=== PATIENT | male | born 1950 | race Caucasian/White ===

== ENCOUNTER → 2016-06-30 | Outpatient (CLI) | payer MEDICARE, OTHER ==
[~2016-06-30] MED LIST: ACIP20TA5 PO; ASPI1TAB PO; ATOR40TA PO; BUTACAP78 PO; FISH100049 PO; GABA-279 PO; GABA-283 PO; GABA600T PD; LISI10TA4 PO; METF500T PO; VENL75TA2 PO; VITA-114 PO; VITA100041 PO; [UNRECOGNIZED DRUG - CODE] PO
[2016-06-30 18:58] LABS: ALBUMIN 3.9 GM/DL (3.2-5.2); ALBUMIN/GLOBULIN RATIO 1.34 (1.00-1.93); ALKALINE PHOSPHATASE 85 U/L (45-117); ALT/SGPT 50 U/L (12-78); ANION GAP 7 MEQ/L (8-16); AST/SGOT 28 U/L (15-37); BILIRUBIN,TOTAL 0.4 MG/DL (0.2-1.0); BLOOD UREA NITROGEN 23 MG/DL (7-18); CALCIUM LEVEL 9.1 MG/DL (8.8-10.2); CARBON DIOXIDE LEVEL 27 MEQ/L (21-32); CHLORIDE LEVEL 105 MEQ/L (98-107); CHOLESTEROL LEVEL 164 MG/DL (<200); CREATININE FOR GFR 1.21 MG/DL (0.70-1.30); GLOMERULAR FILTRATION RATE > 60.0 (>49); GLUCOSE, FASTING 126 MG/DL (80-110); SODIUM LEVEL 139 MEQ/L (136-145); TOTAL PROTEIN 6.8 GM/DL (6.4-8.2); TRIGLYCERIDES LEVEL 325 MG/DL (<150)
== END ==
LOC: M WUC 08:27
PROVIDERS: ATTEND Emergency Medicine
DX: E11.9 Type 2 diabetes mellitus without complications (principal); I10 Essential (primary) hypertension; E78.2 Mixed hyperlipidemia; E55.9 Vitamin D deficiency, unspecified; N40.1 Benign prostatic hyperplasia with lower urinary tract symptoms; R97.20 Elevated prostate specific antigen [PSA]
CPT/HCPCS: 36415; 80053; 80061; 82306; 83036; 84154; G0103

== ENCOUNTER → 2016-06-30 | Outpatient (CLI) | payer MEDICARE, OTHER ==
[2016-07-03 14:18] LABS: PSA TOTAL 3.8 ng/mL (0.0-4.0)
== END ==
LOC: M WUC 08:24
PROVIDERS: ATTEND Urology
DX: R97.20 Elevated prostate specific antigen [PSA] (principal)

== ENCOUNTER → 2016-07-31 | Outpatient (CLI) | payer MEDICARE, OTHER ==
[~2016-07-31] MED LIST changes: +ALPH1CAP PO; +BETA2500 PO; +FLOM5CAP PO; -GABA600T PD; +GABA600T PO; +VESI5TAB PO
[2016-07-31 15:17] LABS: ANION GAP 9 MEQ/L (8-16); BLOOD UREA NITROGEN 27 MG/DL (7-18); CALCIUM LEVEL 9.5 MG/DL (8.8-10.2); CARBON DIOXIDE LEVEL 23 MEQ/L (21-32); CHLORIDE LEVEL 105 MEQ/L (98-107); CREATININE FOR GFR 1.17 MG/DL (0.70-1.30); GLOMERULAR FILTRATION RATE > 60.0 (>49); GLUCOSE, FASTING 124 MG/DL (80-110); POTASSIUM SERUM 4.4 MEQ/L (3.5-5.1); SODIUM LEVEL 137 MEQ/L (136-145)
--- NOTE | 2016-07-31 23:05 | ECGEPIP ---
Stationary ECG Study [facility] Test Date: 2016-07-31 Pat Name: FOZIA PARMAR Department: Room: - Gender: M Professional Services Manager: STANLEY : 1950 Requested By: THERON Luna Order Number: [id number] Reading MD: Brigido Cross Measurements Intervals [place] Rate: 85 P: 46 [place]: 172 QRS: 48 QRSD: 82 T: 70 QT: 331 QTc: 395 Interpretive Statements SINUS RHYTHM SEPTAL MYOCARDIAL INFARCTION, Likely old if present. Poor R-wave progression. Early repolarization. PRWP new compared with 08/20/2013. Electronically Signed On 07-31-2016 23:05:23 EDT by Brigido Cross
== END ==
LOC: M LAB 13:39
PROVIDERS: ATTEND Anesthesiology
DX: Z01.818 Encounter for other preprocedural examination (principal); I10 Essential (primary) hypertension; E11.9 Type 2 diabetes mellitus without complications; I49.3 Ventricular premature depolarization

== ENCOUNTER → 2016-08-08 | Outpatient (CLI) | payer MEDICARE, OTHER ==
[~2016-08-08] VITALS: Ht 170.2 cm; Wt 97.5 kg
[~2016-08-08] MED LIST changes: +NS 1,000 ML IV SCH; +ePHEDrine SULFATE 25 MG/5 ML(5MG/ML) SYRINGE As Ordered ONE
--- NOTE | 2016-08-08 10:46 | ROOR ---
Patient Name: Tate Fay Procedure Date: 08/08/2016 10:24 AM Date of : 1950 Age: 66 Room: [facility] Gender: Male Note Status: Finalized Procedure: Upper GI endoscopy + Biopsies Indications: Follow-up of Hollins's esophagus Providers: Cristofer Madera MD Referring MD: THERON RAE MD Requesting Provider: Medicines: Monitored Anesthesia Care Complications: No immediate complications. Procedure: Pre-Anesthesia Assessment: - The heart rate, respiratory rate, oxygen saturations, blood pressure, adequacy of pulmonary ventilation, and response to care were monitored throughout the procedure. The Endoscope was introduced through the mouth, and advanced to the second part of duodenum. The upper GI endoscopy was accomplished without difficulty. The patient tolerated the procedure well. Findings: The Z-line was irregular and was found 40 cm from the incisors. Multiple biopsies were obtained with cold forceps for evaluation to rule out Hollins's Esophagus randomly at the gastroesophageal junction. A medium-sized hiatal hernia was present. No other significant abnormalities were identified in a careful examination of the stomach. The exam of the duodenum was otherwise normal. Impression: - Z-line irregular, 40 cm from the incisors. - Medium-sized hiatal hernia. - Multiple biopsies were obtained at the gastroesophageal junction. - The examination was otherwise normal. Recommendation: - Patient has a contact number available for emergencies. The signs and symptoms of potential delayed complications were discussed with the patient. Return to normal activities tomorrow. Written discharge instructions were provided to the patient. - High fiber diet. - Discharge patient to home. - Follow an antireflux regimen. - Continue present medications. - Await pathology results. - Check Portal Online for Path Results.([email or web address]!) - Return to referring physician. - The findings and recommendations were discussed with the patient's family. Cristofer Madera MD Cristofer Madera MD 08/08/2016 10:46:05 AM This report has been signed electronically. Number of Addenda: 0 Note Initiated On: 08/08/2016 10:24 AM Estimated Blood Loss: Estimated blood loss: none.
[2016-08-08 11:30] VITALS: BP 114/75
== END ==
LOC: M OPP 09:40
PROVIDERS: ATTEND Internal Medicine Gastroenterology
DX: Z09 Encounter for follow-up examination after completed treatment for conditions other than malignant neoplasm (principal); K22.70 Barrett's esophagus without dysplasia; K44.9 Diaphragmatic hernia without obstruction or gangrene; K22.8 Other specified diseases of esophagus; Z87.891 Personal history of nicotine dependence; Z79.82 Long term (current) use of aspirin; Z79.899 Other long term (current) drug therapy; Z88.1 Allergy status to other antibiotic agents

== ENCOUNTER → 2017-01-04 | Outpatient (CLI) | payer MEDICARE, OTHER ==
[~2017-01-04] MED LIST changes: +ACIP1TAB PO; -ACIP20TA5 PO; -ALPH1CAP PO; +ALPH200C2 PO; -ATOR40TA PO; +ATOR40TA75 PO; -METF500T PO; +METF500T13 PO; -NS 1,000 ML IV SCH; -VESI5TAB PO; +VESI5TAB2 PO; +VITA-182 PO; -VITA100041 PO; -ePHEDrine SULFATE 25 MG/5 ML(5MG/ML) SYRINGE As Ordered ONE
[2017-01-04 13:00] LABS: ALBUMIN 3.8 GM/DL (3.2-5.2); ALBUMIN/GLOBULIN RATIO 1.31 (1.00-1.93); ALKALINE PHOSPHATASE 84 U/L (45-117); ALT/SGPT 45 U/L (12-78); ANION GAP 7 MEQ/L (8-16); AST/SGOT 26 U/L (15-37); BILIRUBIN,TOTAL 0.3 MG/DL (0.2-1.0); BLOOD UREA NITROGEN 26 MG/DL (7-18); CALCIUM LEVEL 9.1 MG/DL (8.8-10.2); CARBON DIOXIDE LEVEL 27 MEQ/L (21-32); CHLORIDE LEVEL 106 MEQ/L (98-107); CHOLESTEROL LEVEL 145 MG/DL (<200); CREATININE FOR GFR 1.15 MG/DL (0.70-1.30); GLOMERULAR FILTRATION RATE > 60.0 (>49); GLUCOSE, FASTING 110 MG/DL (80-110); SODIUM LEVEL 140 MEQ/L (136-145); TOTAL PROTEIN 6.7 GM/DL (6.4-8.2); TRIGLYCERIDES LEVEL 228 MG/DL (<150)
[2017-01-04 13:01] LABS: POTASSIUM SERUM 5.4 MEQ/L (3.5-5.1)
== END ==
LOC: M WUC 09:56
PROVIDERS: ATTEND Emergency Medicine
DX: E78.2 Mixed hyperlipidemia (principal); I10 Essential (primary) hypertension; E55.9 Vitamin D deficiency, unspecified; E11.9 Type 2 diabetes mellitus without complications; R97.20 Elevated prostate specific antigen [PSA]

== ENCOUNTER → 2017-01-04 | Outpatient (CLI) | payer MEDICARE, OTHER ==
[2017-01-09 00:06] LABS: PSA TOTAL 3.7 ng/mL (0.0-4.0)
== END ==
LOC: M WUC 10:01
PROVIDERS: ATTEND Nurse Practitioner Family
DX: R97.20 Elevated prostate specific antigen [PSA] (principal)

== ENCOUNTER → 2017-08-09 | Outpatient (CLI) | payer MEDICARE, OTHER ==
[2017-08-09 12:52] LABS: ALBUMIN 3.8 GM/DL (3.2-5.2); ALBUMIN/GLOBULIN RATIO 1.23 (1.00-1.93); ALKALINE PHOSPHATASE 95 U/L (45-117); ALT/SGPT 57 U/L (12-78); ANION GAP 6 MEQ/L (8-16); AST/SGOT 27 U/L (7-37); BILIRUBIN,TOTAL 0.3 MG/DL (0.2-1.0); BLOOD UREA NITROGEN 14 MG/DL (7-18); CALCIUM LEVEL 9.4 MG/DL (8.8-10.2); CARBON DIOXIDE LEVEL 26 MEQ/L (21-32); CHLORIDE LEVEL 108 MEQ/L (98-107); CHOLESTEROL LEVEL 126 MG/DL (<200); CREATININE FOR GFR 1.14 MG/DL (0.70-1.30); GLOMERULAR FILTRATION RATE > 60.0 (>49); GLUCOSE, FASTING 108 MG/DL (70-100); HDL CHOLESTEROL 42 MG/DL (>40); LDL CHOLESTEROL 46.8 MG/DL (<100); NON-HDL-C 84 MG/DL; SODIUM LEVEL 140 MEQ/L (136-145); TOTAL PROTEIN 6.9 GM/DL (6.4-8.2); TRIGLYCERIDES LEVEL 186 MG/DL (<150)
[2017-08-09 12:57] LABS: TOTAL 25(OH) VITAMIN D 50.5 NG/ML (30.0-100.0)
[2017-08-09 13:07] LABS: POTASSIUM SERUM 5.5 MEQ/L (3.5-5.1)
[2017-08-09 13:20] LABS: ESTIMATED AVERAGE GLUCOSE 146 MG/DL (60-110); HEMOGLOBIN A1c 6.7 %
== END ==
LOC: M WUC 08:34
DX: E11.9 Type 2 diabetes mellitus without complications (principal); I10 Essential (primary) hypertension; E78.2 Mixed hyperlipidemia; E55.9 Vitamin D deficiency, unspecified
CPT/HCPCS: 80053

== ENCOUNTER 2017-12-25 09:16 | Day surgery (SDC) | payer MEDICARE, OTHER ==
[~2017-12-25 09:16] MED LIST changes: -ACIP1TAB PO; -ALPH200C2 PO; -ASPI1TAB PO; -ATOR40TA75 PO; -BETA2500 PO; -BUTACAP78 PO; -FISH100049 PO; -FLOM5CAP PO; -GABA-279 PO; -GABA-283 PO; -GABA600T PO; -LISI10TA4 PO; -METF500T13 PO; +PROPOFOL 200 MG/20 ML VIAL As Ordered; -VENL75TA2 PO; -VESI5TAB2 PO; -VITA-114 PO; -VITA-182 PO; -[UNRECOGNIZED DRUG - CODE] PO
[2017-12-25] MEDS: NS 1,000 ML IV (10:03)
[2017-12-25] MEDS ORDERED: LIDOCAINE 2% INJ 100 MG/5 ML SDV (FOR ANES.) As Ordered (10:10)
[2017-12-25] MEDS ORDERED: fentaNYL 100 MCG/2 ML INJECTION (J3010) As Ordered (11:06)
== END 2017-12-25 11:54 | disposition home or self-care (01) ==
LOC: M OPP 09:16
DX: K22.8 Other specified diseases of esophagus (principal); K44.9 Diaphragmatic hernia without obstruction or gangrene; R12 Heartburn; K22.70 Barrett's esophagus without dysplasia; I10 Essential (primary) hypertension; E78.00 Pure hypercholesterolemia, unspecified; E11.9 Type 2 diabetes mellitus without complications; M12.9 Arthropathy, unspecified; F32.9 Major depressive disorder, single episode, unspecified; G43.909 Migraine, unspecified, not intractable, without status migrainosus; R39.15 Urgency of urination; Z79.82 Long term (current) use of aspirin; Z79.84 Long term (current) use of oral hypoglycemic drugs; Z79.899 Other long term (current) drug therapy; Z88.0 Allergy status to penicillin
CPT/HCPCS: 43239

== ENCOUNTER → 2018-02-05 | Outpatient (CLI) | payer MEDICARE, OTHER ==
[2018-02-05 13:30] LABS: ALBUMIN 3.8 GM/DL (3.2-5.2); ALBUMIN/GLOBULIN RATIO 1.31 (1.00-1.93); ALKALINE PHOSPHATASE 93 U/L (45-117); ALT/SGPT 42 U/L (12-78); ANION GAP 4 MEQ/L (8-16); AST/SGOT 24 U/L (7-37); BILIRUBIN,TOTAL 0.3 MG/DL (0.2-1.0); BLOOD UREA NITROGEN 20 MG/DL (7-18); CALCIUM LEVEL 9.6 MG/DL (8.8-10.2); CARBON DIOXIDE LEVEL 30 MEQ/L (21-32); CHLORIDE LEVEL 109 MEQ/L (98-107); CHOLESTEROL LEVEL 137 MG/DL (<200); CHOLESTEROL RISK RATIO 2.914 (<5); CREATININE FOR GFR 1.31 MG/DL (0.70-1.30); GLOMERULAR FILTRATION RATE 57.9 (>49); GLUCOSE, FASTING 104 MG/DL (70-100); HDL CHOLESTEROL 47 MG/DL (>40); LDL CHOLESTEROL 63 MG/DL (<100); NON-HDL-C 90 MG/DL; POTASSIUM SERUM 5.9 MEQ/L (3.5-5.1); SODIUM LEVEL 143 MEQ/L (136-145); TOTAL PROTEIN 6.7 GM/DL (6.4-8.2); TRIGLYCERIDES LEVEL 134 MG/DL (<150)
[2018-02-05 13:41] LABS: TOTAL 25(OH) VITAMIN D 36.2 NG/ML (30.0-100.0)
[2018-02-05 13:55] LABS: ESTIMATED AVERAGE GLUCOSE 146 MG/DL (60-110); HEMOGLOBIN A1c 6.7 %
== END ==
LOC: M WUC 08:41
DX: E11.9 Type 2 diabetes mellitus without complications (principal); I10 Essential (primary) hypertension; E78.2 Mixed hyperlipidemia; E55.9 Vitamin D deficiency, unspecified
CPT/HCPCS: 80053

== ENCOUNTER 2018-04-04 15:23 | Inpatient (IN) | payer MEDICARE, OTHER ==
[2018-04-04 15:43] LABS: BEDSIDE GLUCOSE 110 MG/DL (80-115)
[2018-04-04 17:24] LABS: BASO # 0.1 10^3/uL (0.0-0.2); BASO % 0.7 % (0.0-1.0); EOS # 0.4 10^3/uL (0.0-0.50); HEMATOCRIT 44.5 % (42.0-52.0); HEMOGLOBIN 14.9 g/dl (13.5-17.5); IMMATURE GRANULOCYTE % 0.4 % (0-3.0); LYMPH # 2.2 10^3/uL (1.5-4.5); LYMPH % 27.3 % (24.0-44.0); MEAN CORPUSCULAR HEMOGLOBIN 31.2 pg (27.0-33.0); MEAN CORPUSCULAR HGB CONC 33.5 g/dl (32.0-36.5); MEAN CORPUSCULAR VOLUME 93.3 fl (80.0-96.0); MONO # 0.9 10^3/uL (0.0-0.8); MONO % 11.2 % (0.0-5.0); NEUTROPHILS # 4.5 10^3/uL (1.8-7.7); NEUTROPHILS % 55.4 % (36.0-66.0); PLATELET COUNT, AUTOMATED 216 10^3/uL (150-450); RED BLOOD COUNT 4.77 10^6/uL (4.30-6.10); RED CELL DISTRIBUTION WIDTH 13.8 % (11.5-14.5); WHITE BLOOD COUNT 8.1 10^3/uL (4.0-10.0)
[2018-04-04 17:45] LABS: INR 0.92; PROTHROMBIN TIME 12.4 SECONDS (12.1-14.4)
[2018-04-04 17:46] LABS: PARTIAL THROMBOPLASTIN TIME 22.2 SECONDS (25.4-37.6)
[2018-04-04 18:24] LABS: ANION GAP 14 MEQ/L (8-16); BLOOD UREA NITROGEN 46 MG/DL (7-18); CALCIUM LEVEL 8.5 MG/DL (8.8-10.2); CARBON DIOXIDE LEVEL 21 MEQ/L (21-32); CHLORIDE LEVEL 109 MEQ/L (98-107); CPK CREATINE PHOSPHOKINASE 13757 U/L (39-308); CREATININE FOR GFR 2.74 MG/DL (0.70-1.30); GLOMERULAR FILTRATION RATE 24.7 (>49); GLUCOSE, FASTING 111 MG/DL (70-100); MAGNESIUM LEVEL 1.8 MG/DL (1.8-2.4); MB/CK RELATIVE INDEX 0.08 (< OR =4); SODIUM LEVEL 144 MEQ/L (136-145); TROPONIN I < 0.02 NG/ML (< 0.10)
[2018-04-04] MEDS: ADACEL/BOOSTRIX VACCINE (DIPHTH/PERTUSS/ACELL/TETANUS)0.5ML SYR (90715) IM (19:30)
[2018-04-04] MEDS: NS 1,000 ML IV ×3 (19:45→23:10)
[2018-04-04] MEDS ORDERED: GLUCAGON FOR INJ 1 MG VIAL (J1610) SC (20:15)
[2018-04-04] MEDS ORDERED: GLUCOSE 4 GM CHEW TABLET PO (20:15)
[2018-04-04] MEDS ORDERED: DEXTROSE 50% 50 ML SYRINGE IV (20:15)
[2018-04-04 22:22] LABS: BEDSIDE GLUCOSE 97 MG/DL (80-115)
[2018-04-04] MEDS: HEPARIN SOD (PORCINE) 5000 UNITS/ML VIAL SC (23:10)
[2018-04-04] MEDS: ASPIRIN 81 MG ENTERIC TAB PO (23:10)
[2018-04-04] MEDS: GABAPENTIN 400 MG CAP PO (23:11)
[2018-04-04] MEDS: VENLAFAXINE **XR** 75MG CAPSULE PO (23:11)
[2018-04-04] MEDS: ACETAMINOPHEN TAB 650MG DOSE (2X325MG) PO (23:12)
[2018-04-04 23:40] LABS: TROPONIN I < 0.02 NG/ML (< 0.10)
[2018-04-05] MEDS: HumaLOG INSULIN (NovoLOG) PER UNIT SC ×5 (00:35→20:24)
[2018-04-05 01:47] LABS: SODIUM,RANDOM URINE 114 MEQ/L
[2018-04-05 01:47] LABS: CHLORIDE,RANDOM URINE 102 MEQ/L; KETONE, URINE AUTO RFX NEGATIVE (NEGATIVE); LEUKOCYTE ESTERASE UR AUTO RFX NEGATIVE (NEGATIVE); NITRITE, URINE AUTO RFX NEGATIVE (NEGATIVE); POTASSIUM RANDOM URINE 28.6 MEQ/L; RBC, URINE AUTO RFX 0 /HPF (0-3); SPECIFIC GRAVITY UR AUTO RFX 1.017 (1.002-1.035); SQUAM EPITHELIAL CELL UR AURFX 0 /HPF (0-6); WBC, URINE AUTO RFX 1 /HPF (0-3)
[2018-04-05] MEDS: ADACEL/BOOSTRIX VACCINE (DIPHTH/PERTUSS/ACELL/TETANUS)0.5ML SYR (90715) IM (01:54)
[2018-04-05 05:48] LABS: HEMATOCRIT 39.4 % (42.0-52.0); HEMOGLOBIN 13.1 g/dl (13.5-17.5); MEAN CORPUSCULAR HGB CONC 33.2 g/dl (32.0-36.5); MEAN CORPUSCULAR VOLUME 93.1 fl (80.0-96.0); PLATELET COUNT, AUTOMATED 187 10^3/uL (150-450); RED BLOOD COUNT 4.23 10^6/uL (4.30-6.10); RED CELL DISTRIBUTION WIDTH 13.7 % (11.5-14.5); WHITE BLOOD COUNT 7.3 10^3/uL (4.0-10.0)
[2018-04-05 06:20] LABS: ANION GAP 9 MEQ/L (8-16); BLOOD UREA NITROGEN 39 MG/DL (7-18); CALCIUM LEVEL 8.9 MG/DL (8.8-10.2); CARBON DIOXIDE LEVEL 22 MEQ/L (21-32); CHLORIDE LEVEL 107 MEQ/L (98-107); CREATININE FOR GFR 1.83 MG/DL (0.70-1.30); GLOMERULAR FILTRATION RATE 39.4 (>49); GLUCOSE, FASTING 98 MG/DL (70-100); POTASSIUM SERUM 4.7 MEQ/L (3.5-5.1); SODIUM LEVEL 138 MEQ/L (136-145); TROPONIN I < 0.02 NG/ML (< 0.10)
[2018-04-05] MEDS: HEPARIN SOD (PORCINE) 5000 UNITS/ML VIAL SC ×3 (06:25→21:42)
[2018-04-05] MEDS: ACETAMINOPHEN TAB 650MG DOSE (2X325MG) PO ×2 (06:26→11:11)
[2018-04-05 08:44] LABS: FERRITIN 36 NG/ML (26-388); IRON (FE) 90 UG/DL (65-175); PERCENT SATURATION 32.7 % (19.7-50.0); TOTAL IRON BINDING CAPACITY 275 UG/DL (250-450)
[2018-04-05] MEDS: NS 1,000 ML IV (09:27)
[2018-04-05] MEDS: VITAMIN D 1,000 INTERNATIONAL UNITS TABLET PO (11:00)
[2018-04-05] MEDS: ASPIRIN 81 MG ENTERIC TAB PO ×2 (11:01→21:41)
[2018-04-05] MEDS: ATORVASTATIN 20 MG TAB PO (11:01)
[2018-04-05] MEDS: PANTOPRAZOLE 40MG TAB (PROTONIX) PO (11:01)
[2018-04-05] MEDS: VENLAFAXINE **XR** 75MG CAPSULE PO ×2 (11:01→21:42)
[2018-04-05 11:21] LABS: BEDSIDE GLUCOSE 134 MG/DL (80-115)
[2018-04-05 16:41] LABS: BEDSIDE GLUCOSE 92 MG/DL (80-115)
[2018-04-05 20:21] LABS: BEDSIDE GLUCOSE 152 MG/DL (80-115)
[2018-04-05] MEDS: GABAPENTIN 400 MG CAP PO (21:41)
[2018-04-06] MEDS: HEPARIN SOD (PORCINE) 5000 UNITS/ML VIAL SC ×3 (05:10→21:24)
[2018-04-06] MEDS: NS 1,000 ML IV ×3 (05:10→21:50)
[2018-04-06 05:35] LABS: HEMATOCRIT 41.7 % (42.0-52.0); HEMOGLOBIN 13.8 g/dl (13.5-17.5); MEAN CORPUSCULAR HEMOGLOBIN 31.2 pg (27.0-33.0); MEAN CORPUSCULAR HGB CONC 33.1 g/dl (32.0-36.5); MEAN CORPUSCULAR VOLUME 94.1 fl (80.0-96.0); PLATELET COUNT, AUTOMATED 208 10^3/uL (150-450); RED BLOOD COUNT 4.43 10^6/uL (4.30-6.10); RED CELL DISTRIBUTION WIDTH 13.4 % (11.5-14.5); WHITE BLOOD COUNT 7.6 10^3/uL (4.0-10.0)
[2018-04-06 06:09] LABS: ANION GAP 7 MEQ/L (8-16); BLOOD UREA NITROGEN 24 MG/DL (7-18); CALCIUM LEVEL 8.9 MG/DL (8.8-10.2); CARBON DIOXIDE LEVEL 23 MEQ/L (21-32); CHLORIDE LEVEL 109 MEQ/L (98-107); CPK CREATINE PHOSPHOKINASE 6524 U/L (39-308); CREATININE FOR GFR 1.28 MG/DL (0.70-1.30); GLOMERULAR FILTRATION RATE 59.5 (>49); GLUCOSE, FASTING 73 MG/DL (70-100); MAGNESIUM LEVEL 1.5 MG/DL (1.8-2.4); SODIUM LEVEL 139 MEQ/L (136-145)
[2018-04-06] MEDS: HumaLOG INSULIN (NovoLOG) PER UNIT SC ×4 (07:15→21:00)
[2018-04-06] MEDS: ASPIRIN 81 MG ENTERIC TAB PO ×2 (10:15→21:23)
[2018-04-06] MEDS: PANTOPRAZOLE 40MG TAB (PROTONIX) PO (10:15)
[2018-04-06] MEDS: ATORVASTATIN 20 MG TAB PO (10:16)
[2018-04-06] MEDS: VENLAFAXINE **XR** 75MG CAPSULE PO ×2 (10:16→21:23)
[2018-04-06] MEDS: VITAMIN D 1,000 INTERNATIONAL UNITS TABLET PO (10:17)
[2018-04-06 11:37] LABS: BEDSIDE GLUCOSE 110 MG/DL (80-115)
[2018-04-06 16:47] LABS: BEDSIDE GLUCOSE 102 MG/DL (80-115)
[2018-04-06 19:45] LABS: BEDSIDE GLUCOSE 89 MG/DL (80-115)
[2018-04-06] MEDS: MAGNESIUM OXIDE 400 MG TAB (MAG-OX) PO (21:23)
[2018-04-06] MEDS: GABAPENTIN 400 MG CAP PO (21:23)
[2018-04-07] MEDS: HEPARIN SOD (PORCINE) 5000 UNITS/ML VIAL SC (05:51)
[2018-04-07 05:57] LABS: HEMATOCRIT 40.9 % (42.0-52.0); HEMOGLOBIN 13.5 g/dl (13.5-17.5); MEAN CORPUSCULAR HEMOGLOBIN 30.9 pg (27.0-33.0); MEAN CORPUSCULAR VOLUME 93.6 fl (80.0-96.0); PLATELET COUNT, AUTOMATED 196 10^3/uL (150-450); RED BLOOD COUNT 4.37 10^6/uL (4.30-6.10); RED CELL DISTRIBUTION WIDTH 13.4 % (11.5-14.5); WHITE BLOOD COUNT 8.3 10^3/uL (4.0-10.0)
[2018-04-07 06:36] LABS: ANION GAP 7 MEQ/L (8-16); BLOOD UREA NITROGEN 21 MG/DL (7-18); CALCIUM LEVEL 8.7 MG/DL (8.8-10.2); CARBON DIOXIDE LEVEL 23 MEQ/L (21-32); CHLORIDE LEVEL 109 MEQ/L (98-107); CPK CREATINE PHOSPHOKINASE 3112 U/L (39-308); CREATININE FOR GFR 1.22 MG/DL (0.70-1.30); GLOMERULAR FILTRATION RATE > 60.0 (>49); GLUCOSE, FASTING 86 MG/DL (70-100); MAGNESIUM LEVEL 1.5 MG/DL (1.8-2.4); POTASSIUM SERUM 4.8 MEQ/L (3.5-5.1); SODIUM LEVEL 139 MEQ/L (136-145)
[2018-04-07] MEDS: HumaLOG INSULIN (NovoLOG) PER UNIT SC (07:28)
[2018-04-07] MEDS: MAGNESIUM OXIDE 400 MG TAB (MAG-OX) PO (08:55)
[2018-04-07] MEDS: ATORVASTATIN 20 MG TAB PO (08:55)
[2018-04-07] MEDS: VENLAFAXINE **XR** 75MG CAPSULE PO (08:55)
[2018-04-07] MEDS: PANTOPRAZOLE 40MG TAB (PROTONIX) PO (08:55)
[2018-04-07] MEDS: ASPIRIN 81 MG ENTERIC TAB PO (08:55)
[2018-04-07] MEDS: VITAMIN D 1,000 INTERNATIONAL UNITS TABLET PO (08:56)
[2018-04-07] MEDS: NS 1,000 ML IV (08:56)
[2018-04-07 10:43] LABS: VITAMIN B12 LEVEL 823 PG/ML (247-911)
[2018-04-07 10:43] LABS: FOLATE 12.2 NG/ML (>5.4)
== END 2018-04-07 11:44 | disposition home or self-care (01) | DRG 683 ==
LOC: M ED 15:23 → M ED INP 20:00 → M MSPAV 22:05
PROVIDERS: Internal Medicine
DX: N17.9 Acute kidney failure, unspecified (principal); M62.82 Rhabdomyolysis; I95.1 Orthostatic hypotension; E11.21 Type 2 diabetes mellitus with diabetic nephropathy; F41.9 Anxiety disorder, unspecified; K21.9 Gastro-esophageal reflux disease without esophagitis; E78.5 Hyperlipidemia, unspecified; E86.0 Dehydration; I12.9 Hypertensive chronic kidney disease with stage 1 through stage 4 chronic kidney disease, or unspecified chronic kidney disease; N18.2 Chronic kidney disease, stage 2 (mild); F32.9 Major depressive disorder, single episode, unspecified; E55.9 Vitamin D deficiency, unspecified; M19.90 Unspecified osteoarthritis, unspecified site; Z79.82 Long term (current) use of aspirin; Z79.84 Long term (current) use of oral hypoglycemic drugs; Z79.1 Long term (current) use of non-steroidal anti-inflammatories (NSAID); Z88.1 Allergy status to other antibiotic agents

== ENCOUNTER → 2018-04-15 | Outpatient (CLI) | payer MEDICARE, OTHER ==
[~2018-04-15] MED LIST changes: +ACE65ERTAB PO; +ACET650S3 PR; +ACIP1TAB PO; +ALPH200C2 PO; +ASPI1TAB PO; +ATOR40TA75 PO; +BETA2500 PO; +BUTACAP78 PO; +FISH100049 PO; +FLOM0.4C39 PO; +GABA-1171 PO; +GABA-845 PO; +GABA600T4 PO; +IBUP200C25 PO; +LISI10TA4 PO; +MAGN400C PO; +METF10004 PO; +METF500T13 PO; -PROPOFOL 200 MG/20 ML VIAL As Ordered; +VENL150C43 PO; +VENL75TA2 PO; +VESI5TAB2 PO; +VITA-114 PO; +VITA-182 PO; +[UNRECOGNIZED DRUG - CODE] PO
[2018-04-15 12:58] LABS: BLOOD UREA NITROGEN 28 MG/DL (7-18); CALCIUM LEVEL 9.5 MG/DL (8.8-10.2); CARBON DIOXIDE LEVEL 26 MEQ/L (21-32); CHLORIDE LEVEL 104 MEQ/L (98-107); CREATININE FOR GFR 1.15 MG/DL (0.70-1.30); GLOMERULAR FILTRATION RATE > 60.0 (>49); GLUCOSE, FASTING 103 MG/DL (70-100); MAGNESIUM LEVEL 1.8 MG/DL (1.8-2.4); POTASSIUM SERUM 5.2 MEQ/L (3.5-5.1); SODIUM LEVEL 138 MEQ/L (136-145)
== END ==
LOC: M WUC 09:58
PROVIDERS: ATTEND Family Medicine
DX: E86.0 Dehydration (principal)

== ENCOUNTER → 2018-06-13 | Outpatient (CLI) | payer MEDICARE, OTHER ==
[2018-06-13 13:51] LABS: ALBUMIN 3.9 GM/DL (3.2-5.2); ALT/SGPT 36 U/L (12-78); BILIRUBIN,TOTAL 0.5 MG/DL (0.2-1.0); BLOOD UREA NITROGEN 20 MG/DL (7-18); CALCIUM LEVEL 9.1 MG/DL (8.8-10.2); CARBON DIOXIDE LEVEL 27 MEQ/L (21-32); CHLORIDE LEVEL 102 MEQ/L (98-107); CHOLESTEROL LEVEL 160 MG/DL (<200); CREATININE FOR GFR 1.16 MG/DL (0.70-1.30); GLOMERULAR FILTRATION RATE > 60.0 (>49); GLUCOSE, FASTING 98 MG/DL (70-100); HDL CHOLESTEROL 50 MG/DL (>40); LDL CHOLESTEROL 75 MG/DL (<100); NON-HDL-C 110 MG/DL; POTASSIUM SERUM 5.1 MEQ/L (3.5-5.1); SODIUM LEVEL 137 MEQ/L (136-145); TOTAL PROTEIN 6.8 GM/DL (6.4-8.2); TRIGLYCERIDES LEVEL 174 MG/DL (<150)
[2018-06-13 13:57] LABS: TOTAL 25(OH) VITAMIN D 35.4 NG/ML (30.0-100.0)
== END ==
LOC: M WUC 08:27
PROVIDERS: ATTEND Physician Assistant
DX: E11.9 Type 2 diabetes mellitus without complications (principal); I10 Essential (primary) hypertension; E78.2 Mixed hyperlipidemia; E55.9 Vitamin D deficiency, unspecified

== ENCOUNTER → 2018-08-12 | Outpatient (CLI) | payer MEDICARE, OTHER ==
[~2018-08-12] MED LIST changes: -ASPI1TAB PO; +ASPI81TA26 PO
[2018-08-12 10:54] LABS: BLOOD UREA NITROGEN 29 MG/DL (7-18); CALCIUM LEVEL 9.5 MG/DL (8.8-10.2); CARBON DIOXIDE LEVEL 27 MEQ/L (21-32); CHLORIDE LEVEL 105 MEQ/L (98-107); CREATININE FOR GFR 1.13 MG/DL (0.70-1.30); GLOMERULAR FILTRATION RATE > 60.0 (>49); GLUCOSE, FASTING 99 MG/DL (70-100); POTASSIUM SERUM 5.3 MEQ/L (3.5-5.1); SODIUM LEVEL 137 MEQ/L (136-145)
[2018-08-12 13:10] LABS: HEMOGLOBIN A1c 6.6 %
== END ==
LOC: M LAB 09:20
PROVIDERS: ATTEND Physician Assistant
DX: R73.01 Impaired fasting glucose (principal)

== ENCOUNTER → 2018-08-20 | Outpatient (REF) | payer MEDICARE, OTHER ==
[2018-08-20 17:58] LABS: APPEARANCE, URINE CLEAR (CLEAR); BACTERIA, URINE AUTO NEGATIVE (NEGATIVE); BILIRUBIN, URINE AUTO NEGATIVE (NEGATIVE); BLOOD, URINE BLOOD NEGATIVE (NEGATIVE); COLOR, URINE YELLOW (YELLOW); GLUCOSE, URINE (UA) AUTO NEGATIVE (NEGATIVE); KETONE, URINE AUTO NEGATIVE (NEGATIVE); LEUKOCYTE ESTERASE, URINE AUTO NEGATIVE (NEGATIVE); MUCUS, URINE SMALL (NEGATIVE); NITRITE, URINE AUTO NEGATIVE (NEGATIVE); PROTEIN, URINE AUTO NEGATIVE (NEGATIVE); RBC, URINE AUTO 1 /HPF (0-3); SPECIFIC GRAVITY URINE AUTO 1.015 (1.002-1.035); SQUAMOUS EPITHELIAL CELL UR AU 0 /HPF (0-6); UROBILINOGEN, URINE AUTO 0.2 mg/dL (0.0-2.0); WBC, URINE AUTO 1 /HPF (0-3)
== END ==
LOC: M SMT 17:32
PROVIDERS: ATTEND Nurse Practitioner Women's Health
DX: R97.20 Elevated prostate specific antigen [PSA] (principal); N40.1 Benign prostatic hyperplasia with lower urinary tract symptoms
CPT/HCPCS: 81001; 87086; G0463

== ENCOUNTER → 2018-08-26 | Outpatient (CLI) | payer MEDICARE, OTHER ==
[2018-08-26 16:55] LABS: BLOOD UREA NITROGEN 25 MG/DL (7-18); CALCIUM LEVEL 9.7 MG/DL (8.8-10.2); CARBON DIOXIDE LEVEL 24 MEQ/L (21-32); CHLORIDE LEVEL 104 MEQ/L (98-107); CREATININE FOR GFR 1.21 MG/DL (0.70-1.30); GLOMERULAR FILTRATION RATE > 60.0 (>49); GLUCOSE, FASTING 111 MG/DL (70-100); POTASSIUM SERUM 4.9 MEQ/L (3.5-5.1); SODIUM LEVEL 135 MEQ/L (136-145)
== END ==
LOC: M WUC 11:54
PROVIDERS: ATTEND Physician Assistant
DX: E87.5 Hyperkalemia (principal)

== ENCOUNTER → 2018-09-23 | Outpatient (CLI) | payer MEDICARE, OTHER ==
[~2018-09-23] MED LIST changes: +ACET-683 PO; +CEFD1CAP8 PO; +CHOL10007 PO; +METF-839 PO; +NIAC500T6 PO; +NIAS500T23 PO
--- NOTE | 2018-09-23 11:22 | REP ---
Prostate sonography: History: Elevated PSA Sonographic findings: Trans rectal prostate sonography demonstrates unremarkable seminal vesicles. Prostate gland is heterogeneously enlarged with calcifications and cystic changes noted. Glandular dimensions are measured at 4.5 x 4.3 x 6.9 cm with a calculated glandular volume of 70.5 ml. There is a 1.2 cm hypoechoic region in the right mid gland. Transrectal sonographic guidance is provided to Dr. Wilkerson who performed trans rectal ultrasound guided needle biopsy procedure . Electronically Signed by Jose M Renteria MD 09/23/2018 11:14 A
== END ==
LOC: M SMT PRO 09:02
PROVIDERS: ATTEND Urology
DX: R97.20 Elevated prostate specific antigen [PSA] (principal)
CPT/HCPCS: 55700; 76872; 76942; G0416

== ENCOUNTER 2018-09-28 18:15 | Inpatient (IN) | payer MEDICARE, OTHER ==
[~2018-09-28] VITALS: Ht 170.2 cm; Wt 94.3 kg
[~2018-09-28 18:15] MED LIST changes: -ACET-683 PO; -CEFD1CAP8 PO; -CHOL10007 PO; -METF-839 PO; -NIAC500T6 PO; -NIAS500T23 PO
--- NOTE | 2018-09-28 19:08 | REP ---
Clinical: Systemic inflammatory response syndrome . Comparison: 04/04/2018 . Findings: The mediastinum and cardiac silhouette are stable and within normal limits for portable technique. The lung arana are clear without acute consolidation, effusion, or pneumothorax. Skeletal structures are intact. Impression: No acute cardiopulmonary process appreciated. Electronically Signed by Frank Avila MD 09/28/2018 07:00 P
[2018-09-28] MEDS ORDERED: cefTRIAXone SOD 1 GM in D5W MINI-BAG PLUS 50 ML IV ONE (19:30)
[2018-09-28 19:32] LABS: HEMATOCRIT 41.7 % (42.0-52.0); HEMOGLOBIN 14.3 g/dl (13.5-17.5); MEAN CORPUSCULAR HEMOGLOBIN 31.2 pg (27.0-33.0); MEAN CORPUSCULAR HGB CONC 34.3 g/dl (32.0-36.5); MEAN CORPUSCULAR VOLUME 90.8 fl (80.0-96.0); PLATELET COUNT, AUTOMATED 202 10^3/uL (150-450); RED BLOOD COUNT 4.59 10^6/uL (4.30-6.10); WHITE BLOOD COUNT 16.5 10^3/uL (4.0-10.0)
[2018-09-28 19:56] LABS: ALBUMIN 3.5 GM/DL (3.2-5.2); BILIRUBIN,DIRECT 0.2 MG/DL (0.0-0.2); BILIRUBIN,TOTAL 0.8 MG/DL (0.2-1.0); CALCIUM LEVEL 8.9 MG/DL (8.8-10.2); CREATININE FOR GFR 1.27 MG/DL (0.70-1.30); POTASSIUM SERUM 4.5 MEQ/L (3.5-5.1)
[2018-09-28 19:58] LABS: LYMPHOCYTES 17 % (16-52); MONOCYTES 9 % (0-8); NEUTROPHILS 74 % (35-75); PLATELET ESTIMATE NORMAL (NORMAL)
[2018-09-28 20:11] LABS: APPEARANCE, URINE CLEAR (CLEAR); BACTERIA, URINE AUTO 1+ (NEGATIVE); BILIRUBIN, URINE AUTO NEGATIVE (NEGATIVE); BLOOD, URINE BLOOD 2+ (NEGATIVE); COLOR, URINE YELLOW (YELLOW); GLUCOSE, URINE (UA) AUTO NEGATIVE (NEGATIVE); KETONE, URINE AUTO NEGATIVE (NEGATIVE); LEUKOCYTE ESTERASE, URINE AUTO 1+ (NEGATIVE); NITRITE, URINE AUTO NEGATIVE (NEGATIVE); PROTEIN, URINE AUTO NEGATIVE (NEGATIVE); RBC, URINE AUTO 10 /HPF (0-3); SPECIFIC GRAVITY URINE AUTO 1.019 (1.002-1.035); SQUAMOUS EPITHELIAL CELL UR AU 0 /HPF (0-6); UROBILINOGEN, URINE AUTO 0.2 mg/dL (0.0-2.0); WBC, URINE AUTO 25 /HPF (0-3)
[2018-09-28] MEDS ORDERED: NIAC500T6 PO (20:56)
[2018-09-28] MEDS ORDERED: MAGN400C PO (20:56)
[2018-09-28] MEDS ORDERED: [UNRECOGNIZED DRUG - CODE] PO (20:56)
[2018-09-28] MEDS ORDERED: ACET-683 PO (20:56)
[2018-09-28] MEDS ORDERED: CHOL10007 PO (20:56)
[2018-09-28] MEDS ORDERED: FLOM0.4C39 PO (20:56)
[2018-09-28] MEDS ORDERED: NIAS500T23 PO (20:57)
[2018-09-28] MEDS: HumaLOG INSULIN (NovoLOG) PER UNIT SC SCH (21:00)
[2018-09-28] MEDS ORDERED: MAALOX 30 ML SUSP *UDC PO PRN (21:15)
[2018-09-28] MEDS ORDERED: ACETAMINOPHEN TAB 650MG DOSE (2X325MG) PO PRN (21:15)
[2018-09-28] MEDS ORDERED: MOM 30ML SUSPENSION UDC PO PRN (21:15)
--- NOTE | 2018-09-28 21:25 | HPEPDOC ---
General Date of Admission Date of Service: Sep 28, 2018 Chief Complaint The patient is a 68-year-old male admitted with a reason for visit of ADMIT. Source: Patient, RN/, Old records History of Present Illness Mr. Fay is a 68 years old man who had elective prostatae biopsy on SatSeptember 23 due to elevated PSA level. He was sent to ER for admission by his Urology due to fever and increased urinary frequency. The symptoms started yesterday; he was prescribed Cipro, the first pill of which he took this morning. In the afternoon, he had a fever spike of 101.5F at home and he took Tylenol before coming to ER. The pt denies dysuria, chills, back pain, lightheadedness or other symptoms. In the ER, pt had UA showing LE+ and WBC 25, negative nitrate. WBC 16.5. Temp 1 00F. Other labs, hemodynamic and mental status are normal. Dr. Funez was contacted from ER; who recommended admission and antibiotic. Home Medications Scheduled Aspirin (Aspirin EC) 81 Mg Tab, 81 MG PO BID, (Reported) Atorvastatin Calcium (Atorvastatin Calcium) 40 Mg Tab, 40 MG PO DAILY, (Reported) Cholecalciferol (Vitamin D3) (Vitamin D3) 1,000 Unit Tablet, 3,000 UNIT PO DAILY, (Reported) Gabapentin (Gabapentin) 600 Mg Tab, 1,200 MG PO QHS, (Reported) Lisinopril (Lisinopril) 10 Mg Tab, 10 MG PO DAILY, (Reported) Magnesium Oxide (Magnesium) 400 Mg Capsule, 400 MG PO BID, (Reported) Metformin HCl (Metformin HCl) 500 Mg Tab, 500 MG PO QAM, (Reported) Niacin (Niacin) 500 Mg Tablet.er, 500 MG PO QAM, (Reported) Niacin (Niaspan) 750 Mg Tab.er.24h, 1,500 MG PO QHS, (Reported) Niacin (Niaspan) 500 Mg Tab.er.24h, 500 MG PO QAM, (Reported) Rabeprazole Sodium (Aciphex) 20 Mg Tab, 20 MG PO BID, (Reported) Tamsulosin HCl (Flomax) 0.4 Mg Capsule, 0.4 MG PO DAILY, (Reported) Venlafaxine HCl (Venlafaxine HCl ER) 150 Mg Cap, 150 MG PO BID, (Reported) Scheduled PRN Acetaminophen (Acetaminophen) 500 Mg Tablet, 1,000 MG PO Q6H PRN for PAIN, (Reported) Butalb/Acetaminophen/Caffeine (Vxcelh-Amzmodpx-Ocda 50-325-40) 1 Cap Cap, 1 CAP PO Q8H PRN for MIGRAINE, (Reported) LAST TAKEN ABOUT A WEEK AGO Allergies Coded Allergies: erythromycin base (Verified Allergy, Unknown, 09/28/18) Past Medical History Medical History TYPE 2 DM HTN MIXED HYPERLIPIDEMIA VITAMIN D DEFICIENCY BLAS'S ESOPHAGUS MAJOR DEPRESSIVE DISORDER ENLARGED PROSTATE Surgical History [place] teeth removal; prostate biopsy 09/23 Family History Significant Family History: Diabetes, Heart disease, Hypertension Social History * Smoker: former Smoker Alcohol: Denies Drugs: denies A-FIB/CHADSVASC A-FIB History Current/History of A-Fib/PAF?: No Review of Systems Constitutional: Reports: Fever; Denies: Chills Eyes: Denies: Pain ENT: Denies: Head Aches Skin: Denies: Rash, Lesions Pulmonary: Denies: Dyspnea, Cough Cardiovascular: Denies: Chest Pain, Palpitations, Edema, Lt Headedness Gastrointestinal: Denies: Nausea, Vomiting, Abdominal Pain, Diarrhea Genitourinary: Reports: Frequency; Denies: Dysuria Musculoskeletal: Denies: Neck Pain, Back Pain Neurological: Denies: Weakness, Numbness, Change in speech, Confusion Psych: Reports: Mood Normal; Denies: Anxiety Physical Examination General Exam: Positive: Alert, Cooperative, No Acute Distress Eye Exam: Positive: PERRLA ENT Exam: Positive: Atraumatic Neck Exam: Positive: Supple; Negative: JVD Chest Exam: Positive: Clear to auscultation, Normal air movement Heart Exam: Positive: Rate Normal, Regular Rhythm Abdomen Exam: Positive: Normal bowel sounds, Soft, Other (no CVA tenderness); Negative: Tenderness Extremity Exam: Positive: Normal pulses; Negative: Edema Skin Exam: Positive: Nl turgor and temperature; Negative: Rash, Breakdown Neuro Exam: Positive: Normal Gait, Normal Speech Psych Exam: Positive: Mental status NL, Mood NL, Oriented x 3 Vital Signs Vital Signs Date Time Temp Pulse Resp B/P (MAP) Pulse Ox O2 Delivery O2 Flow Rate FiO2 09/28/18 19:30 Room Air 09/28/18 19:30 100.0 105 18 155/73 95 Laboratory Data Labs 24H Laboratory Tests 2 09/28/18 19:18: White Blood Count 16.5H, Red Blood Count 4.59, Hemoglobin 14.3, Hematocrit 41.7L, Mean Corpuscular Volume 90.8, Mean Corpuscular Hemoglobin 31.2, Mean Corpuscular Hemoglobin Concent 34.3, Red Cell Distribution Width 13.3, Platelet Count 202, Monocytes # (Auto) , Nucleated Red Blood Cells % (auto) 0.0, Neutrophils 74, Lymphocytes (Manual) 17, Monocytes (Manual) 9H, Platelet Estimate NORMAL, Red Blood Cell Morphology NORMAL, Anion Gap 11, Glomerular Filtration Rate 60.0, Calcium Level 8.9, Aspartate Amino Transf (AST/SGOT) 35, Alanine Aminotransferase (ALT/SGPT) 39, Alkaline Phosphatase 95, Total Bilirubin 0.8, Direct Bilirubin 0.2, Total Protein 7.0, Albumin 3.5, Albumin/Globulin Ratio 1.00 09/28/18 19:19: Lactic Acid Level 1.4 09/28/18 19:44: Urine Appearance CLEAR, Urine Color YELLOW, Urine pH 5.0, Urine Specific [place] 1.019, Urine Protein NEGATIVE, Urine Glucose (UA) NEGATIVE, Urine Ketones NEGATIVE, Urine Urobilinogen 0.2, Urine Bilirubin NEGATIVE, Urine Leukocyte Esterase 1+H, Urine Blood 2+H, Urine Nitrite NEGATIVE, Urine WBC (Auto) 25H, Urine RBC (Auto) 10H, Urine Hyaline Casts (Auto) 0, Urine Bacteria (Auto) 1+H, Urine Squamous Epithelial Cells 0, Urine Sperm (Auto) CBC/BMP Laboratory Tests 09/28/18 19:18 Red Blood Count 4.59, Mean Corpuscular Volume 90.8, Mean Corpuscular Hemoglobin 31.2, Mean Corpuscular Hemoglobin Concent 34.3, Red Cell Distribution Width 13.3, Monocytes # (Auto) Microbiology Microbiology 09/28/18 Blood Culture, Received Pending 09/28/18 Blood Culture, Received Pending 09/28/18 Urine Culture, Received Pending Assessment/Plan UTI in a patient with Recent Prostate Biopsy five days ago - Admit to inpatient; Uro consult placed - IV Rocephin; IV fluid - f/u Blood and Urine c/s - Monitor signs of sepsis which is not present at this time. Continue home meds for other chronic illness Plan / VTE VTE Prophylaxis Ordered?: Yes Plan Anticipated Discharge: Home BRITNI FLOWERS MD Sep 28, 2018 21:25
[2018-09-28] MEDS ORDERED: GLUCOSE 4 GM CHEW TABLET PO PRN (21:30)
[2018-09-28] MEDS ORDERED: DEXTROSE 50% 50 ML SYRINGE IV PRN (21:30)
[2018-09-28] MEDS ORDERED: GLUCAGON FOR INJ 1 MG VIAL (J1610) SC PRN (21:30)
[2018-09-28] MEDS ORDERED: METF-839 PO (22:08)
[2018-09-28 22:50] VITALS: BP 128/74
[2018-09-28] MEDS: GABAPENTIN 400 MG CAP PO SCH (23:37)
[2018-09-28] MEDS: VENLAFAXINE **XR** 75MG CAPSULE PO SCH (23:37)
[2018-09-28] MEDS: MAGNESIUM OXIDE 400 MG TAB (MAG-OX) PO SCH (23:37)
[2018-09-28] MEDS: HEPARIN SOD (PORCINE) 5000 UNITS/ML VIAL SC SCH (23:38)
[2018-09-28] MEDS: NS 1,000 ML IV SCH (23:38)
[2018-09-29] MEDS: NIACIN SR (NIASPAN) 500 MG TAB PO SCH ×3 (01:34→21:37)
[2018-09-29 06:00] VITALS: BP 124/77
[2018-09-29] MEDS: HumaLOG INSULIN (NovoLOG) PER UNIT SC SCH ×4 (07:30→21:00)
[2018-09-29 08:04] LABS: HEMATOCRIT 38.8 % (42.0-52.0); MEAN CORPUSCULAR HEMOGLOBIN 30.4 pg (27.0-33.0); MEAN CORPUSCULAR HGB CONC 33.5 g/dl (32.0-36.5); MEAN CORPUSCULAR VOLUME 90.7 fl (80.0-96.0); PLATELET COUNT, AUTOMATED 198 10^3/uL (150-450); RED BLOOD COUNT 4.28 10^6/uL (4.30-6.10); WHITE BLOOD COUNT 17.4 10^3/uL (4.0-10.0)
[2018-09-29 08:24] LABS: ALBUMIN 3.2 GM/DL (3.2-5.2); BILIRUBIN,TOTAL 0.7 MG/DL (0.2-1.0); CALCIUM LEVEL 9.1 MG/DL (8.8-10.2); CREATININE FOR GFR 1.29 MG/DL (0.70-1.30); POTASSIUM SERUM 5.4 MEQ/L (3.5-5.1); TOTAL PROTEIN 6.8 GM/DL (6.4-8.2)
[2018-09-29] MEDS: NS 1,000 ML IV SCH (08:55)
[2018-09-29] MEDS: LISINOPRIL 10 MG TAB PO SCH (08:56)
[2018-09-29] MEDS: ATORVASTATIN 20 MG TAB PO SCH (08:56)
[2018-09-29] MEDS: ASPIRIN 81 MG ENTERIC TAB PO SCH ×2 (08:56→21:37)
[2018-09-29] MEDS: VENLAFAXINE **XR** 75MG CAPSULE PO SCH ×2 (08:56→21:37)
[2018-09-29] MEDS: MAGNESIUM OXIDE 400 MG TAB (MAG-OX) PO SCH ×2 (08:56→21:36)
[2018-09-29] MEDS: TAMSULOSIN 0.4 MG CAP PO SCH (08:56)
[2018-09-29] MEDS: HEPARIN SOD (PORCINE) 5000 UNITS/ML VIAL SC SCH ×2 (08:57→21:37)
[2018-09-29] MEDS: PANTOPRAZOLE 40MG TAB (PROTONIX) PO SCH (08:57)
[2018-09-29] MEDS: cefTRIAXone SOD 1 GM in D5W MINI-BAG PLUS 50 ML IV SCH ×2 (09:08→21:37)
--- NOTE | 2018-09-29 12:19 | IPNPDOC ---
Subjective Date Seen The patient was seen on 09/29/18. Subjective Chief Complaint/HPI Patient is comfortable off was no new complaints hoping to go home tomorrow, afebrile General: Denies: ROS Unobtainable, Chills, Night Sweats, Fatigue, Malaise, Normal Appetite, Other Symptoms Constitutional: Denies: Chills, Fever, Malaise, Night Sweats, Weakness, Fatigue, Weight Loss, Lethargy, Other Eyes: Denies: Pain, Vision change, Conjunctivae inflammation, Eyelid inflamma tion, Redness, Other ENT: Denies: Head Aches, Ear Pain, Dysphagia, Sinus Congestion, Post Nasal Drip, Sore Throat, Epistaxis, Other Symptoms Skin: Denies: Rash, Lesions, Jaundice, Bruising, Itching, Dry, Breakdown, Nail Changes, Other Pulmonary: Denies: Dyspnea, Cough, Pleuritic Chest Pain, Other Symptoms Cardiovascular: Denies: Chest Pain, Palpitations, Orthopnea, Paroxysmal Noc. Dyspnea, Edema, Lt Headedness, Other Symptoms Gastrointestinal: Denies: Nausea, Vomiting, Abdominal Pain, Diarrhea, Constipation, Melena, Hematochezia, Other Symptoms Genitourinary: Denies: Dysuria, Frequency, Incontinence, Hematuria, Retention, Other Symptoms Musculoskeletal: Denies: Neck Pain, Back Pain, Shoulder Pain, Arm Pain, Hand Pain, Leg Pain, Foot Pain, Joint Pain, Muscle Pain, Spasms, Other Symptoms Neurological: Denies: Weakness, Numbness, Incoordination, Change in speech, Confusion, Seizures, Other Symptoms Psych: Denies: Mood Normal, Anxiety, Depression, Memory Issues, Thoughts of Self Harm, Anger, Thoughts of Harming Other, Other Psych Objective Physical Examination General Exam: Positive: Alert, Cooperative, No Acute Distress Eye Exam: Positive: PERRLA ENT Exam: Positive: Atraumatic Neck Exam: Positive: Supple; Negative: JVD Chest Exam: Positive: Clear to auscultation, Normal air movement Heart Exam: Positive: Rate Normal, Regular Rhythm Abdomen Exam: Positive: Normal bowel sounds, Soft, Other (no CVA tenderness); Negative: Tenderness Extremity Exam: Positive: Normal pulses; Negative: Edema Skin Exam: Positive: Nl turgor and temperature; Negative: Rash, Breakdown Neuro Exam: Positive: Normal Gait, Normal Speech Psych Exam: Positive: Mental status NL, Mood NL, Oriented x 3 Assessment /Plan Problems (1) UTI (urinary tract infection) Problem Text: Admitted to medical floor Patient is asymptomatic at the present time and also is afebrile A new IV Rocephin Leaflets will be DC'd as patient is at a good oral intake of liquids Urology consult is still pending Once the cleared by urology can be discharged home Urine cultures can be followed up by his PCP as an outpatient Plan/VTE VTE Prophylaxis Ordered?: Yes Plan Anticipated Discharge: Home VS, I&O, 24H, Fishbone Vital Signs/I&O Vital Signs Date Time Temp Pulse Resp B/P (MAP) Pulse Ox O2 Delivery O2 Flow Rate FiO2 09/29/18 08:56 124/77 09/29/18 06:14 100.2 09/29/18 06:00 107 18 93 09/28/18 22:00 Room Air I&O- Last 24 Hours up to 6 AM 09/29/18 06:00 Intake Total 850 ml Output Total 500 ml Balance 350 ml Laboratory Data 24H LABS Laboratory Tests 2 09/28/18 19:18: White Blood Count 16.5H, Red Blood Count 4.59, Hemoglobin 14.3, Hematocrit 41.7L, Mean Corpuscular Volume 90.8, Mean Corpuscular Hemoglobin 31.2, Mean Corpuscular Hemoglobin Concent 34.3, Red Cell Distribution Width 13.3, Platelet Count 202, Monocytes # (Auto) , Nucleated Red Blood Cells % (auto) 0.0, Neutrophils 74, Lymphocytes (Manual) 17, Monocytes (Manual) 9H, Platelet Estimate NORMAL, Red Blood Cell Morphology NORMAL, Anion Gap 11, Glomerular Filt ration Rate 60.0, Calcium Level 8.9, Aspartate Amino Transf (AST/SGOT) 35, Alanine Aminotransferase (ALT/SGPT) 39, Alkaline Phosphatase 95, Total Bilirubin 0.8, Direct Bilirubin 0.2, Total Protein 7.0, Albumin 3.5, Albumin/Globulin Ratio 1.00 09/28/18 19:19: Lactic Acid Level 1.4 09/28/18 19:44: Urine Appearance CLEAR, Urine Color YELLOW, Urine pH 5.0, Urine Specific [place] 1.019, Urine Protein NEGATIVE, Urine Glucose (UA) NEGATIVE, Urine Ketones NEGATIVE, Urine Urobilinogen 0.2, Urine Bilirubin NEGATIVE, Urine Leukocyte Esterase 1+H, Urine Blood 2+H, Urine Nitrite NEGATIVE, Urine WBC (Auto) 25H, Urine RBC (Auto) 10H, Urine Hyaline Casts (Auto) 0, Urine Bacteria (Auto) 1+H, Urine Squamous Epithelial Cells 0, Urine Sperm (Auto) 09/28/18 23:04: Bedside Glucose (Misc Panel) 99 09/29/18 07:51: Nucleated Red Blood Cells % (auto) 0.0, Anion Gap 6L, Glomerular Filtration Rate 59.0, Blood Urea Nitrogen 27H, Creatinine 1.29, Sodium Level 136, Potassium Level 5.4H, Chloride Level 106, Carbon Dioxide Level 24, Calcium Level 9.1, Aspartate Amino Transf (AST/SGOT) 27, Alanine Aminotransferase (ALT/SGPT) 32, Alkaline Phosphatase 82, Total Bilirubin 0.7, Total Protein 6.8, Albumin 3.2, Albumin/Globulin Ratio 0.89L 09/29/18 07:59: Bedside Glucose (Misc Panel) 104 09/29/18 11:25: Bedside Glucose (Misc Panel) 130H CBC/BMP Laboratory Tests 09/28/18 19:18 Red Blood Count 4.59, Mean Corpuscular Volume 90.8, Mean Corpuscular Hemoglobin 31.2, Mean Corpuscular Hemoglobin Concent 34.3, Red Cell Distribution Width 13.3, Monocytes # (Auto) 09/29/18 07:51 Red Blood Count 4.28 L, Mean Corpuscular Volume 90.7, Mean Corpuscular Hemoglobin 30.4, Mean Corpuscular Hemoglobin Concent 33.5, Red Cell Distribution Width 13.6, Calcium Level 9.1, Aspartate Amino Transf (AST/SGOT) 27, Alanine Aminotransferase (ALT/SGPT) 32, Alkaline Phosphatase 82, Total Bilirubin 0.7, Total Protein 6.8, Albumin 3.2 Microbiology Microbiology 09/28/18 Blood Culture, Received Pending 09/28/18 Blood Culture, Received Pending 09/28/18 Urine Culture, Received Pending DAYANARA BLANK MD Sep 29, 2018 12:19
[2018-09-29 14:10] VITALS: BP 126/75
--- NOTE | 2018-09-29 17:40 | CR ---
DATE OF CONSULTATION: 09/29/2018 REASON FOR CONSULTATION: Fever after transrectal ultrasound and prostate biopsy. HISTORY OF PRESENT ILLNESS: The patient is a 68-year-old gentleman who underwent a transrectal ultrasound and prostate biopsies by Dr. Matthieu Wilkerson on 09/23/2018 for an elevated PSA level of 5.16. He had been given Bactrim conor-procedurally. He was doing fine until yesterday when he called with a temperature, originally of 101, with some urgency, frequency, and urge incontinence with urination. I had prescribed Cipro as an outpatient but recommended that he come to the emergency room for admission immediately if he developed chills or a higher fever or if his fever did not come down. His fever brianna to 101.5 and it was decided to admit him for intravenous (IV) antibiotics and further inpatient management. He was admitted to the hospitalist service. He denies any gross hematuria, nausea, fever, or chills. Again, he has had some urinary urgency and urge incontinence, but he also had some of this prior to admission and in the remote past. A microscopic urinalysis did show 25 white blood cells and 10 red blood cells per high-power field. His white blood count was elevated 16.5 last night and today came up even higher to 17.4. He had been placed on Rocephin IV and the final urine culture shows no growth, but the blood cultures are still pending. Postvoid residuals were checked and he is emptying his bladder completely. PHYSICAL EXAMINATION: This is a well-developed, well-nourished gentleman in no apparent respiratory distress. He was alert and oriented times three. His maximum temperature (T-max) was 101.5 and his blood pressure is 124/77 and his pulse is 107. His head is normocephalic, atraumatic. His trachea was midline. He had no significant supraclavicular or cervical adenopathy. He had no costovertebral angle (CVA) tenderness. His abdomen was soft and nontender. His extremities show no cyanosis, clubbing or edema. Rectal exam was done and he did have some soreness of the prostate, but no fluctuant areas were appreciated. LABORATORY DATA: His white blood count last night was 16.5 and did come up to 17.4 today. His hemoglobin and hematocrit (H and H) is stable at 14.3/41.7 and his platelets were 202. Final urine culture shows no growth and blood cultures are still pending. A microscopic urinalysis yesterday showed 25 white blood cells and 10 red blood cells per high-power field. IMPRESSION: 1. Fever and mild urosepsis after a prostate biopsy 09/23/[address] Matthieu Wilkerson for an elevated PSA level of 5.16. 2. Some irritative voiding symptoms with urgency and urge incontinence, which has been worse the last couple of days, but which he did have prior to the transrectal ultrasound of prostate biopsy. PLAN: 1. Await final blood cultures. 2. Continue Rocephin 1 gram IV every 24 hours and supportive care. 3. If his white blood count does not come down or he continues to spike fevers, then a study of the prostate should be done to rule out the possibility of the abscess.
[2018-09-29] MEDS: GABAPENTIN 400 MG CAP PO SCH (21:36)
[2018-09-29 22:00] VITALS: BP 115/64
[2018-09-30 06:00] VITALS: BP 129/78
[2018-09-30] MEDS: HumaLOG INSULIN (NovoLOG) PER UNIT SC SCH ×2 (07:30→11:58)
[2018-09-30] MEDS: MAGNESIUM OXIDE 400 MG TAB (MAG-OX) PO SCH (08:24)
[2018-09-30] MEDS: ATORVASTATIN 20 MG TAB PO SCH (08:24)
[2018-09-30] MEDS: NIACIN SR (NIASPAN) 500 MG TAB PO SCH (08:24)
[2018-09-30] MEDS: VENLAFAXINE **XR** 75MG CAPSULE PO SCH (08:25)
[2018-09-30 08:26] VITALS: BP 120/69
[2018-09-30] MEDS: LISINOPRIL 10 MG TAB PO SCH (08:26)
[2018-09-30] MEDS: PANTOPRAZOLE 40MG TAB (PROTONIX) PO SCH (08:27)
[2018-09-30] MEDS: TAMSULOSIN 0.4 MG CAP PO SCH (08:27)
[2018-09-30] MEDS: HEPARIN SOD (PORCINE) 5000 UNITS/ML VIAL SC SCH (08:27)
[2018-09-30] MEDS: ASPIRIN 81 MG ENTERIC TAB PO SCH (08:27)
[2018-09-30] MEDS: cefTRIAXone SOD 1 GM in D5W MINI-BAG PLUS 50 ML IV SCH (08:28)
--- NOTE | 2018-09-30 08:32 | IPNPDOC ---
Subjective Review oF Systems Chief Complaint The patient is a 68-year-old male admitted with a reason for visit of UTI. Events since Last Encounter No acute events o/n. The patient notes that he feels much better. Denies pain. Denies f/c/ns. Objective Physical Examination General Exam: Alert, Cooperative ABDOMEN EXAM: Soft, Other; No: Tenderness Skin Exam: Nl turgor and temperature Neuro Exam: Normal Speech Psych Exam: Mental status NL, Mood NL Vital Signs/I&O Vital Signs Date Time Temp Pulse Resp B/P (MAP) Pulse Ox O2 Delivery O2 Flow Rate FiO2 09/30/18 06:00 98.8 93 18 129/78 (95) 94 09/28/18 22:00 Room Air I&O- Last 24 Hours up to 6 AM 09/30/18 06:00 Intake Total 2900 ml Output Total 350 ml Balance 2550 ml Laboratory Data Labs 24H Laboratory Tests 2 09/29/18 11:25: Bedside Glucose (Misc Panel) 130H 09/29/18 16:33: Bedside Glucose (Misc Panel) 132H 09/29/18 22:28: Bedside Glucose (Misc Panel) 177H 09/30/18 07:50: Bedside Glucose (Misc Panel) 92 FSBS Laboratory Tests Test 09/29/18 11:25 09/29/18 16:33 09/29/18 22:28 09/30/18 07:50 Range/Units Bedside Glucose (Misc Panel) 130 132 177 92 80-115 MG/DL Microbiology Microbiology 09/28/18 Blood Culture - Preliminary, Resulted No growth after 24 hours . All specim... 09/28/18 Blood Culture - Preliminary, Resulted No growth after 24 hours . All specim... 09/28/18 Urine Culture - Final, Complete Assessment/Plan Date Seen The patient was seen on 09/30/18. Patient Summary This is a 68 y/o M admitted to the hospital for a possible UTI after undergoing a TRUS prostate biopsy on 09/23/18. His urine culture is negative and blood cultures are negative thus far. This could be due to him receiving a few doses of cipro prior to coming in to the hospital. He is doing well now w/ no fevers since yesterday at 6am. I discussed his pathology results w/ him, which were negative for cancer. Problems (1) UTI (urinary tract infection) Plan/VTE VTE Prophylaxis Ordered?: Yes VTE Exclusion Mechanical Proph: N/A:VTE Prophy Ordered Plan - continue antibiotics per primary team - would recommend at discharge sending home on oral antibiotics for a total of 14 days of treatment - pathology discussed w/ patient - no treatment necessary as it was negative for cancer - my office will arrange f/u for the patient to see me in 6 months w/ a PSA prior Anticipated Discharge: Home CATALINO CASTELLANOS MD Sep 30, 2018 08:32
[2018-09-30] MEDS ORDERED: CEFD1CAP8 PO (12:38)
--- NOTE | 2018-09-30 14:03 | DS.PDOC ---
Discharge Summary General Date of Admission Sep 28, 2018 at 21:12 Date of Discharge 09/30/2018 Discharge Summary PROCEDURES PERFORMED DURING STAY: [None]. ADMITTING DIAGNOSES: 1. Urinary tract infection s/p prostate biopsy. DISCHARGE DIAGNOSES: 1. Urinary tract infection, complicated by prostate biopsy. COMPLICATIONS/CHIEF COMPLAINT: UTI. HISTORY OF PRESENT ILLNESS: The patient is a 68-year-old gentleman who underwent a transrectal ultrasound and prostate biopsies by Dr. Matthieu Wilkerson on 09/23/2018 for an elevated PSA level of 5.16. He had been given Bactrim conor- procedurally. He was doing fine until a day prior to admission when he called with a temperature, originally of 101, with some urgency, frequency, and urge incontinence with urination. I had prescribed Cipro as an outpatient but recommended that he come to the emergency room for admission immediately if he developed chills or a higher fever or if his fever did not come down. His fever brianna to 101.5 and it was decided to admit him for intravenous (IV) antibiotics and further inpatient management. He was admitted to the hospitalist service. HOSPITAL COURSE: UA shows 25 white blood cells and 10 red blood cells per high- power field. His white blood count was elevated 16.5 last night and today came up even higher to 17.4. He had been placed on ceftriaxone IV and the final urine culture shows no growth, and his symptoms have improved. Currently, he does not have any complaints except for not liking hospital food. The patient will need PO antibiotics for 14 days. Given the fact that he has responded well to ceftriaxone, I will prescribe cefdinir 30 mg BID. DISCHARGE MEDICATIONS: Please see below. ALLERGIES: Please see below. PHYSICAL EXAMINATION ON DISCHARGE: VITAL SIGNS: Please see below. General Exam: Positive: Alert, Cooperative, No Acute Distress Eye Exam: Positive: PERRLA ENT Exam: Positive: Atraumatic Neck Exam: Positive: Supple; Negative: JVD Chest Exam: Positive: Clear to auscultation, Normal air movement Heart Exam: Positive: Rate Normal, Regular Rhythm Abdomen Exam: Positive: Normal bowel sounds, Soft, Other (no CVA tenderness); Negative: Tenderness Extremity Exam: Positive: Normal pulses; Negative: Edema Skin Exam: Positive: Nl turgor and temperature; Negative: Rash, Breakdown Neuro Exam: Positive: Normal Gait, Normal Speech Psych Exam: Positive: Mental status NL, Mood NL, Oriented x 3 LABORATORY DATA: Please see below. ACTIVITY: As tolerated. DIET: Regular diet DISCHARGE PLAN: The patient will need a follow up with his urologist within 7 days. DISPOSITION: . DISCHARGE CONDITION: Stable. Vital Signs/I&Os Vital Signs Date Time Temp Pulse Resp B/P (MAP) Pulse Ox O2 Delivery O2 Flow Rate FiO2 09/30/18 08:26 120/69 09/30/18 06:00 98.8 93 18 94 09/28/18 22:00 Room Air I&O- Last 24 Hours up to 6 AM 09/30/18 05:59 Intake Total 2750 ml Output Total 450 ml Balance 2300 ml Laboratory Data Labs 24H Laboratory Tests 2 09/29/18 16:33: Bedside Glucose (Misc Panel) 132H 09/29/18 22:28: Bedside Glucose (Misc Panel) 177H 09/30/18 07:50: Bedside Glucose (Misc Panel) 92 09/30/18 11:51: Bedside Glucose (Misc Panel) 128H FSBS Laboratory Tests Test 09/29/18 16:33 09/29/18 22:28 09/30/18 07:50 09/30/18 11:51 Range/Units Bedside Glucose (Misc Panel) 132 177 92 128 80-115 MG/DL Microbiology Microbiology 09/28/18 Blood Culture - Preliminary, Resulted No growth after 24 hours . All specim... 09/28/18 Blood Culture - Preliminary, Resulted No growth after 24 hours . All specim... 09/28/18 Urine Culture - Final, Complete Discharge Medications Scheduled Aspirin (Aspirin EC) 81 Mg Tab, 81 MG PO BID, (Reported) Atorvastatin Calcium (Atorvastatin Calcium) 40 Mg Tab, 40 MG PO DAILY, (Reported) Cefdinir (Cefdinir) 300 Mg Capsule, 300 MG PO BID Cholecalciferol (Vitamin D3) (Vitamin D3) 1,000 Unit Tablet, 3,000 UNIT PO DAILY, (Reported) Gabapentin (Gabapentin) 600 Mg Tab, 1,200 MG PO QHS, (Reported) Lisinopril (Lisinopril) 10 Mg Tab, 10 MG PO DAILY, (Reported) Magnesium Oxide (Magnesium) 400 Mg Capsule, 400 MG PO BID, (Reported) Metformin HCl (Metformin HCl) 500 Mg Tab, 500 MG PO QAM, (Reported) Metformin HCl (Metformin HCl) 500 Mg Tablet, 1,000 MG PO QHS, (Reported) Niacin (Niacin) 500 Mg Tablet.er, 500 MG PO QAM, (Reported) Niacin (Niaspan) 750 Mg Tab.er.24h, 1,500 MG PO QHS, (Reported) Rabeprazole Sodium (Aciphex) 20 Mg Tab, 20 MG PO BID, (Reported) Tamsulosin HCl (Flomax) 0.4 Mg Capsule, 0.4 MG PO DAILY, (Reported) Venlafaxine HCl (Venlafaxine HCl ER) 150 Mg Cap, 150 MG PO BID, (Reported) Scheduled PRN Acetaminophen (Acetaminophen) 500 Mg Tablet, 1,000 MG PO Q6H PRN for PAIN, (Reported) Butalb/Acetaminophen/Caffeine (Tivrdi-Aawndquk-Zsce 50-325-40) 1 Cap Cap, 1 CAP PO Q8H PRN for MIGRAINE, (Reported) LAST TAKEN ABOUT A WEEK AGO Allergies Coded Allergies: erythromycin base (Verified Allergy, Unknown, 09/28/18) RANDY FAUSTIN MD Sep 30, 2018 14:03
== END 2018-09-30 15:15 | disposition home or self-care (01) | DRG 699 ==
LOC: M ED 18:15 → M ED INP 21:12 → M MS5PR 22:45
PROVIDERS: ADMIT Internal Medicine; ATTEND Internal Medicine
DX: N99.89 Other postprocedural complications and disorders of genitourinary system (principal); N39.0 Urinary tract infection, site not specified; E11.9 Type 2 diabetes mellitus without complications; I10 Essential (primary) hypertension; N39.41 Urge incontinence; E78.2 Mixed hyperlipidemia; E55.9 Vitamin D deficiency, unspecified; K22.70 Barrett's esophagus without dysplasia; F32.9 Major depressive disorder, single episode, unspecified; N40.1 Benign prostatic hyperplasia with lower urinary tract symptoms; Z79.82 Long term (current) use of aspirin; Z79.84 Long term (current) use of oral hypoglycemic drugs; Z79.899 Other long term (current) drug therapy; Z88.1 Allergy status to other antibiotic agents; Z87.891 Personal history of nicotine dependence; Y83.8 Other surgical procedures as the cause of abnormal reaction of the patient, or of later complication, without mention of misadventure at the time of the procedure

== ENCOUNTER → 2018-12-05 | Outpatient (CLI) | payer MEDICARE, OTHER ==
[~2018-12-05] MED LIST changes: +ACET-683 PO; -BETA2500 PO; +BETA250027 PO; +CEFD1CAP8 PO; +CHOL10007 PO; +METF-839 PO; +NIAC500T92 PO; +NIAS500T23 PO
--- NOTE | 2018-12-06 09:59 | REP ---
RIGHT RIB SERIES: Multiple views of the right ribs were performed with six views obtained. There is a nondisplaced fracture at the anterior end of the right 7th rib. No other definite rib fracture or bone lesion is seen. An accompanying view of the chest demonstrates mild bibasilar fibroatelectatic change without evidence of pneumothorax or pleural effusion. IMPRESSION: Nondisplaced fracture anterior right 7th rib. Electronically Signed by Bebeto Blankenship MD 12/08/2018 11:42 A
== END ==
LOC: M WUC 15:40
PROVIDERS: ATTEND Nurse Practitioner Family
DX: S23.41XA Sprain of ribs, initial encounter (principal); Y92.89 Other specified places as the place of occurrence of the external cause; Y99.9 Unspecified external cause status; Y93.9 Activity, unspecified

== ENCOUNTER → 2019-02-16 | Outpatient (CLI) | payer MEDICARE, OTHER ==
[~2019-02-16] MED LIST changes: +BETA2500 PO; -BETA250027 PO
[2019-02-16 10:06] LABS: ALBUMIN 3.8 GM/DL (3.2-5.2); ALT/SGPT 35 U/L (12-78); BILIRUBIN,TOTAL 0.5 MG/DL (0.2-1.0); BLOOD UREA NITROGEN 25 MG/DL (7-18); CALCIUM LEVEL 9.6 MG/DL (8.8-10.2); CARBON DIOXIDE LEVEL 29 MEQ/L (21-32); CHLORIDE LEVEL 109 MEQ/L (98-107); CHOLESTEROL LEVEL 146 MG/DL (<200); CHOLESTEROL RISK RATIO 2.703 (<5); CREATININE FOR GFR 1.26 MG/DL (0.70-1.30); GLOMERULAR FILTRATION RATE > 60.0 (>49); GLUCOSE, FASTING 94 MG/DL (70-100); HDL CHOLESTEROL 54 MG/DL (>40); LDL CHOLESTEROL 57 MG/DL (<100); NON-HDL-C 92 MG/DL; POTASSIUM SERUM 5.2 MEQ/L (3.5-5.1); SODIUM LEVEL 142 MEQ/L (136-145); TRIGLYCERIDES LEVEL 176 MG/DL (<150)
[2019-02-16 10:16] LABS: MALB URINE SIEMENS 8.8 MG/L
[2019-02-16 10:35] LABS: TOTAL 25(OH) VITAMIN D 37.8 NG/ML (30.0-100.0)
== END ==
LOC: M WUC 08:43
PROVIDERS: ATTEND Physician Assistant
DX: E11.69 Type 2 diabetes mellitus with other specified complication (principal); E78.5 Hyperlipidemia, unspecified; E55.9 Vitamin D deficiency, unspecified

== ENCOUNTER → 2019-03-12 | Outpatient (REF) | payer MEDICARE, OTHER ==
[2019-03-12 17:40] LABS: MALB URINE SIEMENS 16.4 MG/L; MAU/CREAT RATIO 13.5 MCG/MG (0.0-30.0)
== END ==
LOC: M LAB REF 15:25
PROVIDERS: ATTEND Nurse Practitioner Family
DX: E11.9 Type 2 diabetes mellitus without complications (principal)

== ENCOUNTER → 2019-03-17 | Outpatient (REF) | payer MEDICARE, OTHER | LOC: M LABDRAW1 11:33 | PROVIDERS: ATTEND Urology | DX: R97.20 Elevated prostate specific antigen [PSA] (principal) ==

== ENCOUNTER → 2019-03-24 | Outpatient (REF) | payer MEDICARE, OTHER ==
[~2019-03-24] MED LIST changes: -BETA2500 PO; +BETA250027 PO
[2019-03-24 18:39] LABS: APPEARANCE, URINE CLEAR (CLEAR); BACTERIA, URINE AUTO NEGATIVE (NEGATIVE); BILIRUBIN, URINE AUTO NEGATIVE (NEGATIVE); BLOOD, URINE BLOOD NEGATIVE (NEGATIVE); COLOR, URINE YELLOW (YELLOW); GLUCOSE, URINE (UA) AUTO NEGATIVE (NEGATIVE); KETONE, URINE AUTO NEGATIVE (NEGATIVE); LEUKOCYTE ESTERASE, URINE AUTO TRACE (NEGATIVE); MUCUS, URINE SMALL (NEGATIVE); NITRITE, URINE AUTO NEGATIVE (NEGATIVE); PROTEIN, URINE AUTO NEGATIVE (NEGATIVE); RBC, URINE AUTO 0 /HPF (0-3); SPECIFIC GRAVITY URINE AUTO 1.018 (1.002-1.035); SQUAMOUS EPITHELIAL CELL UR AU 0 /HPF (0-6); UROBILINOGEN, URINE AUTO 0.2 mg/dL (0.0-2.0); WBC, URINE AUTO 1 /HPF (0-3)
== END ==
LOC: M SMT 17:04
PROVIDERS: ATTEND Urology
DX: R97.20 Elevated prostate specific antigen [PSA] (principal); N40.1 Benign prostatic hyperplasia with lower urinary tract symptoms
CPT/HCPCS: 81001; 87086; G0463

== ENCOUNTER → 2019-04-01 | Outpatient (CLI) | payer MEDICARE, OTHER ==
[~2019-04-01] MED LIST changes: +BETA2500 PO; -BETA250027 PO
[2019-04-03 00:07] LABS: PSA TOTAL 13.5 ng/mL (0.0-4.0)
== END ==
LOC: M LAB 11:38
PROVIDERS: ATTEND Urology
DX: R97.20 Elevated prostate specific antigen [PSA] (principal)

== ENCOUNTER → 2019-04-03 | Outpatient (CLI) | payer MEDICARE, OTHER ==
[~2019-04-03] MED LIST changes: -BETA2500 PO; +BETA250027 PO; +PROHANCE 279.3MG/ML 5ML VIAL (A9576) As Ordered ONE
[2019-04-03 12:24] LABS: CREATININE FOR GFR 1.44 MG/DL (0.70-1.30); GLOMERULAR FILTRATION RATE 51.8 (>49); POTASSIUM SERUM 4.5 MEQ/L (3.5-5.1)
--- NOTE | 2019-04-06 11:37 | REP ---
MULTIPARAMETRIC MRI PROSTATE WITH AND WITHOUT GADOLINIUM: HISTORY: Elevated PSA. TECHNIQUE: Multiple sequences are obtained in the axial, coronal and sagittal planes prior to and following the intravenous administration of 40 mL ProHance. Images are evaluated with the [employer] software including dynamic post-IV gadolinium, T1 fat sat images. Regions of images are identified for MR ultrasound fusion-guided biopsy. The prostate measures 6.5 x 4.8 x 5.0 cm for a total volume of 75.33 mL. Signal is heterogeneous and there is diffuse heterogeneous enhancement. Within the pelvis, itself, no adenopathy or other evidence of mass is seen. No bone lesion is seen. There are small bilateral inguinal hernias containing fat, right larger than left. Four regions of interest are identified on the [employer] software for MR ultrasound fusion-guided biopsy. First in the right anterior basilar transitional zone, there is an area of relatively decreased signal on T2 diffusion-weighted images measuring 1.3 x 0.9 x 1.0 cm. There is predominantly type 3 enhancement in this region. Overall, level of suspicion is 3 out of 5 with clinically significant cancer equivocal. Second in the right basilar posterior transitional zone and to apical transitional zone, there is a geographic area of predominantly low signal on T2 and diffusion-weighted images. There is predominantly type 3 enhancement in this region, particularly in the mid aspect of the gland. The area measures 2.8 x 1.8 x 3.1 cm for a total volume of 8.05 mL. Overall level of suspicion is 3 out of 5 with clinically significant cancer equivocal. Thirdly, in the left basilar anterior transitional zone and left mid to apical transitional zone, there is a geographic area of relatively low signal on T2 and diffusion-weighted images with predominately type 3 enhancement. The area measures 2.5 x 1.0 x 3.1 cm for a total volume of 5.47 mL. Overall level of suspicion is 3 out of 5 clinically significant cancer equivocal. Finally, in the bilateral mid medial peripheral zone, there is a geographic area of relatively signal on T2 with predominantly type 1 enhancement characteristics. This probably represents an area of prostatitis. The area measures 3.4 x 1.3 x 1.4 cm for a total volume of 2.90 mL. Overall level of suspicion is 2 out of 5 with clinically significant cancer unlikely to be present. IMPRESSION: Enlarged prostate. No pelvic adenopathy. Four regions of interest are identified in the prostate for MR ultrasound infusion-guided biopsy, as above. Electronically Signed by Bebeto Blankenship MD 04/06/2019 03:52 P
== END ==
LOC: M RAD 09:45
PROVIDERS: ATTEND Urology
DX: N40.0 Benign prostatic hyperplasia without lower urinary tract symptoms (principal)
CPT/HCPCS: 36415; 72197; 80048; A9576

== ENCOUNTER → 2019-04-06 | Outpatient (CLI) | payer MEDICARE, OTHER ==
[~2019-04-06] MED LIST changes: -PROHANCE 279.3MG/ML 5ML VIAL (A9576) As Ordered ONE
[2019-04-06 17:06] LABS: BASO # 0.1 10^3/uL (0.0-0.2); BASO % 1.2 % (0.0-1.0); EOS # 0.6 10^3/uL (0.0-0.5); EOS % 9.5 % (0.0-3.0); HEMATOCRIT 47.5 % (42.0-52.0); HEMOGLOBIN 15.2 g/dl (13.5-17.5); LYMPH # 2.2 10^3/uL (1.5-5.0); LYMPH % 32.2 % (24.0-44.0); MEAN CORPUSCULAR HEMOGLOBIN 30.2 pg (27.0-33.0); MEAN CORPUSCULAR VOLUME 94.2 fl (80.0-96.0); MONO # 0.8 10^3/uL (0.0-0.8); MONO % 12.1 % (0.0-5.0); NEUTROPHILS % 44.7 % (36.0-66.0); PLATELET COUNT, AUTOMATED 247 10^3/uL (150-450); RED BLOOD COUNT 5.04 10^6/uL (4.30-6.10); WHITE BLOOD COUNT 6.8 10^3/uL (4.0-10.0)
[2019-04-06 17:12] LABS: BILIRUBIN,TOTAL 0.7 MG/DL (0.2-1.0); CALCIUM LEVEL 9.4 MG/DL (8.8-10.2); CREATININE FOR GFR 1.34 MG/DL (0.70-1.30); GLOMERULAR FILTRATION RATE 56.3 (>49); MAGNESIUM LEVEL 2.1 MG/DL (1.8-2.4); POTASSIUM SERUM 5.4 MEQ/L (3.5-5.1); TOTAL PROTEIN 7.2 GM/DL (6.4-8.2)
== END ==
LOC: M WUC 11:01
PROVIDERS: ATTEND Physician Assistant
DX: R53.83 Other fatigue (principal)

== ENCOUNTER → 2019-04-07 | Outpatient (CLI) | payer MEDICARE, OTHER ==
--- NOTE | 2019-04-07 12:37 | REPPI ---
TRANSRECTAL ULTRASOUND GUIDANCE FOR PROSTATE BIOPSY: Transrectal ultrasound guidance was provided for Dr. Wilkerson who performed MR ultrasound fusion-guided biopsy. The prostate measures 5.0 x 3.9 x 5.3 cm for a total volume of 52.6 mL. Electronically Signed by Bebeto Blankenship MD 04/10/2019 05:11 P
== END ==
LOC: M SMT PRO 09:22
PROVIDERS: ATTEND Urology
DX: R97.20 Elevated prostate specific antigen [PSA] (principal)
CPT/HCPCS: 55700; 76942; G0416

== ENCOUNTER → 2019-08-21 | Outpatient (CLI) | payer MEDICARE, OTHER ==
[2019-08-21 13:04] LABS: BASO # 0.1 10^3/uL (0.0-0.2); BASO % 0.9 % (0.0-1.0); EOS # 1.1 10^3/uL (0.0-0.5); EOS % 13.5 % (0.0-3.0); HEMATOCRIT 47.7 % (42.0-52.0); HEMOGLOBIN 15.8 g/dl (13.5-17.5); LYMPH # 2.8 10^3/uL (1.5-5.0); MEAN CORPUSCULAR HEMOGLOBIN 30.9 pg (27.0-33.0); MEAN CORPUSCULAR HGB CONC 33.1 g/dl (32.0-36.5); MEAN CORPUSCULAR VOLUME 93.3 fl (80.0-96.0); MONO # 0.8 10^3/uL (0.0-0.8); MONO % 10.4 % (0.0-5.0); NEUTROPHILS # 3.1 10^3/uL (1.5-8.5); NEUTROPHILS % 39.1 % (36.0-66.0); PLATELET COUNT, AUTOMATED 225 10^3/uL (150-450); RED BLOOD COUNT 5.11 10^6/uL (4.30-6.10); WHITE BLOOD COUNT 7.9 10^3/uL (4.0-10.0)
[2019-08-21 13:34] LABS: ALBUMIN 3.9 GM/DL (3.2-5.2); BILIRUBIN,TOTAL 0.5 MG/DL (0.2-1.0); CALCIUM LEVEL 9.5 MG/DL (8.8-10.2); CHOLESTEROL RISK RATIO 2.88 (<5); CREATININE FOR GFR 1.34 MG/DL (0.70-1.30); GLOMERULAR FILTRATION RATE 56.3 (>49); POTASSIUM SERUM 4.9 MEQ/L (3.5-5.1); TOTAL PROTEIN 6.7 GM/DL (6.4-8.2)
[2019-08-21 13:41] LABS: TOTAL 25(OH) VITAMIN D 40.4 NG/ML (30.0-100.0)
[2019-08-21 14:32] LABS: HEMOGLOBIN A1c 6.5 %
== END ==
LOC: M PLALAB 08:50
PROVIDERS: ATTEND Physician Assistant
DX: E11.69 Type 2 diabetes mellitus with other specified complication (principal); E78.2 Mixed hyperlipidemia; E55.9 Vitamin D deficiency, unspecified; Z79.899 Other long term (current) drug therapy

== ENCOUNTER → 2019-10-12 | Outpatient (CLI) | payer MEDICARE, OTHER ==
[~2019-10-12] MED LIST changes: +NIAC500T64 PO; +PRESCAP PO; +VITAD1000T PO
== END ==
LOC: M LABSMTC 11:10
PROVIDERS: ATTEND Anesthesiology
DX: Z03.818 Encounter for observation for suspected exposure to other biological agents ruled out (principal); Z11.59 Encounter for screening for other viral diseases
CPT/HCPCS: 87486; 87581; 87633; 87798; C9803

== ENCOUNTER 2019-10-14 14:22 | Emergency (ER) | payer MEDICARE, OTHER ==
[~2019-10-14] VITALS: Ht 170.2 cm; Wt 97.3 kg
[~2019-10-14 14:22] MED LIST changes: -NIAC500T64 PO
[2019-10-14 15:24] LABS: BASO # 0.1 10^3/uL (0.0-0.2); BASO % 0.4 % (0.0-1.0); EOS # 0.3 10^3/uL (0.0-0.5); EOS % 2.1 % (0.0-3.0); HEMATOCRIT 44.8 % (42.0-52.0); HEMOGLOBIN 15.2 g/dl (13.5-17.5); LYMPH # 1.1 10^3/uL (1.5-5.0); LYMPH % 8.3 % (24.0-44.0); MEAN CORPUSCULAR HEMOGLOBIN 31.4 pg (27.0-33.0); MEAN CORPUSCULAR HGB CONC 33.9 g/dl (32.0-36.5); MEAN CORPUSCULAR VOLUME 92.6 fl (80.0-96.0); MONO # 0.9 10^3/uL (0.0-0.8); MONO % 6.5 % (0.0-5.0); NEUTROPHILS # 11.2 10^3/uL (1.5-8.5); NEUTROPHILS % 82.4 % (36.0-66.0); PLATELET COUNT, AUTOMATED 238 10^3/uL (150-450); RED BLOOD COUNT 4.84 10^6/uL (4.30-6.10); WHITE BLOOD COUNT 13.6 10^3/uL (4.0-10.0)
--- NOTE | 2019-10-14 16:05 | REP ---
REASON: Pyrexia. COMPARISON: No priors. FINDINGS: The superior mediastinal structures are midline. The cardiac silhouette is unremarkable in size, shape, and position. The diaphragmatic surfaces of the lungs are regular, and the costophrenic angles are clear. The pulmonary arana are clear. The imaged osseous structures are intact. IMPRESSION: There is no acute cardiopulmonary disease. Electronically Signed by Robb Tompkins DO 10/14/2019 05:06 P
--- NOTE | 2019-10-14 16:08 | REP ---
CT BRAIN WITHOUT CONTRAST: REASON: Confusion. COMPARISON: 04/04/2018, the latest prior. TECHNIQUE: 4.5 mm contiguous transaxial sections were obtained from the skull base to the cerebral convexities with thin cuts through the posterior fossa without the administration of intravenous contrast. FINDINGS: The ventricles and sulci are consistent with the patient's age. There are no extra-axial fluid collections. There is no mass effect. The deep cerebral white matter is consistent with the patient's age. The orbital and petrous structures, cerebellopontine angles, and posterior fossa are unremarkable. The sella turcica, cavernous, and paracavernous structures are essentially unremarkable. The visualized portions of the paranasal sinuses and mastoid air cells are clear. Images of the skull base show no gross abnormality. IMPRESSION: Essentially unremarkable CT examination of the brain. No change. Electronically Signed by Robb Tompkins DO 10/14/2019 05:06 P
[2019-10-14] MEDS ORDERED: NIAC500T64 PO (16:19)
[2019-10-14] MEDS ORDERED: NS 1,000 ML IV ONE (16:30)
[2019-10-14] MEDS ORDERED: ACETAMINOPHEN TAB 650MG DOSE (2X325MG) PO ONE (16:30)
[2019-10-14 16:56] LABS: ALBUMIN 3.9 GM/DL (3.2-5.2); BILIRUBIN,DIRECT 0.1 MG/DL (0.0-0.2); BILIRUBIN,TOTAL 0.6 MG/DL (0.2-1.0); TOTAL PROTEIN 7.1 GM/DL (6.4-8.2)
[2019-10-14 17:30] VITALS: BP 178/96
[2019-10-14] MEDS ORDERED: IBUPROFEN 600MG TAB PO ONE (17:30)
== END 2019-10-14 18:24 | disposition home or self-care (01) ==
LOC: M ED 14:22
DX: R50.9 Fever, unspecified (principal); Z98.890 Other specified postprocedural states; E11.9 Type 2 diabetes mellitus without complications; I10 Essential (primary) hypertension; E78.9 Disorder of lipoprotein metabolism, unspecified; K22.70 Barrett's esophagus without dysplasia; E55.9 Vitamin D deficiency, unspecified; F32.9 Major depressive disorder, single episode, unspecified; N40.0 Benign prostatic hyperplasia without lower urinary tract symptoms; Z87.891 Personal history of nicotine dependence; Z88.1 Allergy status to other antibiotic agents; Z79.899 Other long term (current) drug therapy; Z79.84 Long term (current) use of oral hypoglycemic drugs; Z79.82 Long term (current) use of aspirin

== ENCOUNTER → 2019-10-27 | Outpatient (CLI) | payer MEDICARE, OTHER ==
[~2019-10-27] MED LIST changes: +NIAC500T64 PO
== END ==
LOC: M PLALAB 10:44
PROVIDERS: ATTEND Urology
DX: R97.20 Elevated prostate specific antigen [PSA] (principal)

== ENCOUNTER → 2020-03-15 | Outpatient (CLI) | payer MEDICARE, OTHER ==
[~2020-03-15] MED LIST changes: +D31000TA2 PO; -VITAD1000T PO
[2020-03-15 16:49] LABS: MALB URINE SIEMENS 16.4 MG/L; MAU/CREAT RATIO 23.7 MCG/MG (0.0-30.0)
== END ==
LOC: M WUC 13:40
PROVIDERS: ATTEND Nurse Practitioner Family
DX: E11.9 Type 2 diabetes mellitus without complications (principal); Z79.84 Long term (current) use of oral hypoglycemic drugs

== ENCOUNTER → 2020-04-04 | Outpatient (CLI) | payer MEDICARE, OTHER | LOC: M WUC 16:10 | PROVIDERS: ATTEND Urology | DX: R97.20 Elevated prostate specific antigen [PSA] (principal) ==

== ENCOUNTER → 2020-09-02 | Outpatient (CLI) | payer MEDICARE, OTHER ==
[~2020-09-02] MED LIST changes: +LISI10TA22 PO; -LISI10TA4 PO
[2020-09-02 12:35] LABS: BASO # 0.1 10^3/uL (0.0-0.2); EOS # 0.6 10^3/uL (0.0-0.5); EOS % 7.1 % (0.0-3.0); LYMPH # 2.2 10^3/uL (1.5-5.0); LYMPH % 27.6 % (24.0-44.0); MEAN CORPUSCULAR HEMOGLOBIN 28.8 pg (27.0-33.0); MEAN CORPUSCULAR HGB CONC 31.9 g/dl (32.0-36.5); MEAN CORPUSCULAR VOLUME 90.2 fl (80.0-96.0); MONO # 0.8 10^3/uL (0.0-0.8); MONO % 10.5 % (2.0-8.0); NEUTROPHILS # 4.1 10^3/uL (1.5-8.5); NEUTROPHILS % 53.3 % (36.0-66.0); PLATELET COUNT, AUTOMATED 252 10^3/uL (150-450); RED BLOOD COUNT 5.21 10^6/uL (4.30-6.10); WHITE BLOOD COUNT 7.8 10^3/uL (4.0-10.0)
[2020-09-02 12:52] LABS: ALBUMIN 3.9 GM/DL (3.2-5.2); BILIRUBIN,TOTAL 0.5 MG/DL (0.2-1.0); CALCIUM LEVEL 9.8 MG/DL (8.8-10.2); CHOLESTEROL RISK RATIO 4.348 (<5); CREATININE FOR GFR 1.28 MG/DL (0.70-1.30); GLOMERULAR FILTRATION RATE 59.1 (>42); POTASSIUM SERUM 5.1 MEQ/L (3.5-5.1); TOTAL PROTEIN 6.9 GM/DL (6.4-8.2)
[2020-09-02 12:59] LABS: TOTAL 25(OH) VITAMIN D 36.4 NG/ML (30.0-100.0)
== END ==
LOC: M PLALAB 09:35
PROVIDERS: ATTEND Family Medicine
DX: I10 Essential (primary) hypertension (principal); E55.9 Vitamin D deficiency, unspecified

== ENCOUNTER → 2020-09-07 | Outpatient (REF) | payer MEDICARE, OTHER ==
[~2020-09-07] MED LIST changes: +GABA-283 PO; -GABA-845 PO
[2020-09-07 18:00] LABS: CREATININE, URINE 79.1 MG/DL; MALB URINE SIEMENS < 5.0 MG/L; MAU/CREAT RATIO 6.3 MCG/MG (0.0-30.0)
== END ==
LOC: M LAB REF 16:52
PROVIDERS: ATTEND Family Medicine
DX: E11.9 Type 2 diabetes mellitus without complications (principal)

== ENCOUNTER → 2020-12-09 | Outpatient (CLI) | payer MEDICARE, OTHER ==
[~2020-12-09] MED LIST changes: -NIAC500T92 PO; +[UNRECOGNIZED DRUG - CODE] PO
--- NOTE | 2020-12-09 11:45 | REP ---
INDICATION: M25.512 PAIN IN LEFT SHOULDER. COMPARISON: None. TECHNIQUE: There are three views. FINDINGS: There is acromioclavicular osteoarthritis. The glenohumeral articulation is unremarkable. There is no fracture or dislocation. There are faintly visible calcifications lateral to the humeral head on the internal rotation view, possibly calcific tendinitis. IMPRESSION: Acromioclavicular osteoarthritis. Questionable calcific tendinitis as described. <Electronically signed by Bebeto Gonzalez > 12/09/20 1149
== END ==
LOC: M WUC 10:58
PROVIDERS: ATTEND Physician Assistant Medical
DX: M25.512 Pain in left shoulder (principal); M19.011 Primary osteoarthritis, right shoulder

== ENCOUNTER → 2021-03-07 | Outpatient (CLI) | payer MEDICARE, OTHER ==
[2021-03-07 10:27] LABS: BASO # 0.1 10^3/uL (0.0-0.2); BASO % 0.5 % (0.0-1.0); EOS # 0.5 10^3/uL (0.0-0.5); EOS % 5.7 % (0.0-3.0); HEMATOCRIT 48.2 % (42.0-52.0); HEMOGLOBIN 15.4 g/dl (13.5-17.5); LYMPH # 1.5 10^3/uL (1.5-5.0); MEAN CORPUSCULAR HEMOGLOBIN 28.7 pg (27.0-33.0); MEAN CORPUSCULAR VOLUME 89.9 fl (80.0-96.0); MONO # 1.2 10^3/uL (0.0-0.8); MONO % 12.2 % (2.0-8.0); NEUTROPHILS # 6.2 10^3/uL (1.5-8.5); PLATELET COUNT, AUTOMATED 228 10^3/uL (150-450); RED BLOOD COUNT 5.36 10^6/uL (4.30-6.10); WHITE BLOOD COUNT 9.5 10^3/uL (4.0-10.0)
[2021-03-07 10:56] LABS: ERYTHROCYTE SEDIMENTATION RATE 6 mm/hr (0-20)
[2021-03-07 12:56] LABS: ALBUMIN 3.6 GM/DL (3.2-5.2); BILIRUBIN,TOTAL 0.3 MG/DL (0.2-1.0); C REACTIVE PROTEIN QUANTITATIV 1.62 MG/DL (0.00-0.30); CALCIUM LEVEL 9.1 MG/DL (8.8-10.2); CREATININE FOR GFR 1.57 MG/DL (0.70-1.30); FREE T4 0.95 NG/DL (0.76-1.46); GLOMERULAR FILTRATION RATE 46.6 (>42); POTASSIUM SERUM 4.8 MEQ/L (3.5-5.1); THYROID STIMULATING HORMONE 2.78 uIU/ML (0.358-3.740); TOTAL PROTEIN 6.8 GM/DL (6.4-8.2)
[2021-03-08 16:09] LABS: Lyme Disease IgG/IgM Antibodie <0.91 ISR (0.00-0.90); Lyme Disease IgM Ab Quantitati <0.80 index (0.00-0.79)
== END ==
LOC: M WUC 08:22
PROVIDERS: ATTEND Physician Assistant
DX: M79.10 Myalgia, unspecified site (principal)

== ENCOUNTER → 2021-04-06 | Outpatient (CLI) | payer MEDICARE, OTHER ==
[2021-04-07 23:09] LABS: PSA % FREE 21.4 % (.); PSA FREE 1.24 ng/mL; PSA TOTAL 5.8 ng/mL (0.0-4.0)
== END ==
LOC: M PLALAB 11:51
PROVIDERS: ATTEND Urology
DX: R97.20 Elevated prostate specific antigen [PSA] (principal)

== ENCOUNTER → 2021-08-23 | Outpatient (CLI) | payer MEDICARE, OTHER ==
[~2021-08-23] MED LIST changes: -CEFD1CAP8 PO; +CEFD300C41 PO; -D31000TA2 PO; +VITA100093 PO
[2021-08-23 13:26] LABS: BASO # 0.1 10^3/uL (0.0-0.2); BASO % 1.2 % (0.0-1.0); EOS # 0.6 10^3/uL (0.0-0.5); EOS % 8.9 % (0.0-3.0); HEMATOCRIT 46.1 % (42.0-52.0); HEMOGLOBIN 14.9 g/dl (13.5-17.5); LYMPH # 2.3 10^3/uL (1.5-5.0); LYMPH % 36.2 % (24.0-44.0); MEAN CORPUSCULAR HEMOGLOBIN 28.7 pg (27.0-33.0); MEAN CORPUSCULAR HGB CONC 32.3 g/dl (32.0-36.5); MEAN CORPUSCULAR VOLUME 88.8 fl (80.0-96.0); MONO # 0.5 10^3/uL (0.0-0.8); MONO % 8.4 % (2.0-8.0); NEUTROPHILS # 2.9 10^3/uL (1.5-8.5); PLATELET COUNT, AUTOMATED 222 10^3/uL (150-450); RED BLOOD COUNT 5.19 10^6/uL (4.30-6.10); WHITE BLOOD COUNT 6.4 10^3/uL (4.0-10.0)
[2021-08-23 13:28] LABS: ALBUMIN 3.7 GM/DL (3.2-5.2); ALT/SGPT 31 U/L (12-78); BILIRUBIN,TOTAL 0.4 MG/DL (0.2-1.0); BLOOD UREA NITROGEN 28 MG/DL (7-18); CALCIUM LEVEL 10.3 MG/DL (8.8-10.2); CARBON DIOXIDE LEVEL 30 MEQ/L (21-32); CHLORIDE LEVEL 108 MEQ/L (98-107); CHOLESTEROL LEVEL 166 MG/DL (<200); CREATININE FOR GFR 1.24 MG/DL (0.70-1.30); GLOMERULAR FILTRATION RATE > 60.0 (>42); GLUCOSE, FASTING 103 MG/DL (70-100); HDL CHOLESTEROL 40 MG/DL (>40); LDL CHOLESTEROL 81 MG/DL (<100); NON-HDL-C 126 MG/DL; POTASSIUM SERUM 5.4 MEQ/L (3.5-5.1); SODIUM LEVEL 140 MEQ/L (136-145); TOTAL PROTEIN 6.3 GM/DL (6.4-8.2); TRIGLYCERIDES LEVEL 227 MG/DL (<150)
[2021-08-23 14:09] LABS: MALB URINE SIEMENS < 5.0 MG/L; MAU/CREAT RATIO 4.3 MCG/MG (0.0-30.0)
[2021-08-23 14:46] LABS: HEMOGLOBIN A1c 6.2 %
== END ==
LOC: M PLALAB 10:00
PROVIDERS: ATTEND Family Medicine
DX: E11.9 Type 2 diabetes mellitus without complications (principal)

== ENCOUNTER → 2022-02-21 | Outpatient (CLI) | payer MEDICARE, OTHER ==
[2022-02-21 20:16] LABS: HEMOGLOBIN A1c 6.3 %
== END ==
LOC: M PLALAB 09:18
PROVIDERS: ATTEND Nurse Practitioner Family
DX: E11.9 Type 2 diabetes mellitus without complications (principal)

== ENCOUNTER → 2022-04-05 | Outpatient (CLI) | payer MEDICARE, OTHER | LOC: M PLALAB 10:24 | PROVIDERS: ATTEND Urology | DX: R97.20 Elevated prostate specific antigen [PSA] (principal) ==

== ENCOUNTER → 2022-04-05 | Outpatient (CLI) | payer MEDICARE, OTHER ==
[2022-04-05 15:59] LABS: FOLATE 11.21 NG/ML (>5.4)
== END ==
LOC: M PLALAB 10:27
PROVIDERS: ATTEND Nurse Practitioner Family
DX: R53.83 Other fatigue (principal)

== ENCOUNTER 2022-09-12 11:19 | Day surgery (SDC) | payer MEDICARE, OTHER ==
[~2022-09-12] VITALS: Ht 170.2 cm; Wt 94.1 kg
[~2022-09-12 11:19] MED LIST changes: +FLUO1TAB3 PO; +LIDOCAINE 3.5 % 1ML OPHTH TOPICAL GEL OU ONE
[2022-09-12] MEDS ORDERED: TOBRADEX OPHTH OINT 3.5 GM As Ordered ONE (11:45)
[2022-09-12] MEDS ORDERED: mitoMYcin 0.2 MG/VIAL KIT FOR OPHTHALMIC USE As Ordered ONE (11:45)
[2022-09-12] MEDS ORDERED: LIDOCAINE 1% SDV 5ML VIAL As Ordered ONE (11:45)
[2022-09-12] MEDS ORDERED: MIDAZOLAM INJ 2MG/2ML VIAL As Ordered ONE (13:39)
[2022-09-12] MEDS ORDERED: fentaNYL 100 MCG/2 ML INJECTION As Ordered ONE (13:39)
[2022-09-12 14:15] VITALS: BP 135/82
[2022-09-20] MEDS ORDERED: ALPH600C PO (13:53)
[2022-09-20] MEDS ORDERED: BETA250027 PO (13:53)
[2022-09-20] MEDS ORDERED: OMEG10002 PO (13:53)
[2022-09-20] MEDS ORDERED: VITMTA PO (13:53)
== END 2022-09-12 14:20 | disposition home or self-care (01) ==
LOC: M ADMPAT 11:19 → M SDC 14:20
PROVIDERS: ATTEND Ophthalmology
DX: H40.811 Glaucoma with increased episcleral venous pressure, right eye (principal); I10 Essential (primary) hypertension; E78.5 Hyperlipidemia, unspecified; E11.9 Type 2 diabetes mellitus without complications; K21.9 Gastro-esophageal reflux disease without esophagitis; K44.9 Diaphragmatic hernia without obstruction or gangrene; F10.10 Alcohol abuse, uncomplicated; M19.90 Unspecified osteoarthritis, unspecified site; F41.9 Anxiety disorder, unspecified; F32.A Depression, unspecified; G43.909 Migraine, unspecified, not intractable, without status migrainosus; R06.83 Snoring; N40.1 Benign prostatic hyperplasia with lower urinary tract symptoms; Z79.899 Other long term (current) drug therapy; Z88.1 Allergy status to other antibiotic agents
CPT/HCPCS: 66183; 93005; C1783; J2250; J3010; J7315

== ENCOUNTER 2022-09-26 06:19 | Day surgery (SDC) | payer MEDICARE, OTHER ==
[~2022-09-26] VITALS: Ht 170.2 cm; Wt 95.7 kg
[~2022-09-26 06:19] MED LIST changes: +ALPH600C PO; +OMEG10002 PO; +VITMTA PO
[2022-09-26] MEDS ORDERED: mitoMYcin 0.2 MG/VIAL KIT FOR OPHTHALMIC USE As Ordered ONE (06:27)
[2022-09-26] MEDS ORDERED: POVIDONE-IODINE 5% OPHTH PREP SOL 30ML As Ordered ONE (06:28)
[2022-09-26] MEDS ORDERED: TOBRADEX OPHTH OINT 3.5 GM As Ordered ONE (06:28)
[2022-09-26] MEDS ORDERED: fentaNYL 100 MCG/2 ML INJECTION As Ordered ONE (06:57)
[2022-09-26] MEDS ORDERED: MIDAZOLAM INJ 2MG/2ML VIAL As Ordered ONE (06:57)
[2022-09-26 08:05] VITALS: BP 122/69
== END 2022-09-26 08:23 | disposition home or self-care (01) ==
LOC: M SDC 06:19
PROVIDERS: ATTEND Ophthalmology
DX: H40.812 Glaucoma with increased episcleral venous pressure, left eye (principal); I10 Essential (primary) hypertension; E11.9 Type 2 diabetes mellitus without complications; E78.5 Hyperlipidemia, unspecified; K21.9 Gastro-esophageal reflux disease without esophagitis; K44.9 Diaphragmatic hernia without obstruction or gangrene; G43.909 Migraine, unspecified, not intractable, without status migrainosus; F41.9 Anxiety disorder, unspecified; F32.A Depression, unspecified; Z79.899 Other long term (current) drug therapy; Z79.84 Long term (current) use of oral hypoglycemic drugs; J30.2 Other seasonal allergic rhinitis; Z88.1 Allergy status to other antibiotic agents
CPT/HCPCS: 66183; C1783; J2250; J3010; J7315

== ENCOUNTER → 2022-10-05 | Outpatient (CLI) | payer MEDICARE, OTHER ==
[~2022-10-05] MED LIST changes: -LIDOCAINE 3.5 % 1ML OPHTH TOPICAL GEL OU ONE
== END ==
LOC: M SLEEP 20:00
PROVIDERS: ATTEND Nurse Practitioner Family
DX: G47.33 Obstructive sleep apnea (adult) (pediatric) (principal)

== ENCOUNTER → 2022-11-02 | Outpatient (CLI) | payer MEDICARE, OTHER | LOC: M PLALAB 09:41 | PROVIDERS: ATTEND Urology | DX: R97.20 Elevated prostate specific antigen [PSA] (principal) ==

== ENCOUNTER → 2022-11-02 | Outpatient (CLI) | payer MEDICARE, OTHER ==
[2022-11-02 15:23] LABS: BASO # 0.1 10^3/uL (0.0-0.2); BASO % 0.8 % (0.0-1.0); EOS # 0.6 10^3/uL (0.0-0.5); EOS % 8.5 % (0.0-3.0); HEMOGLOBIN 15.4 g/dl (13.5-17.5); LYMPH # 2.1 10^3/uL (1.5-5.0); LYMPH % 32.9 % (24.0-44.0); MEAN CORPUSCULAR HEMOGLOBIN 30.4 pg (27.0-33.0); MEAN CORPUSCULAR HGB CONC 33.5 g/dl (32.0-36.5); MEAN CORPUSCULAR VOLUME 90.9 fl (80.0-96.0); MONO # 0.6 10^3/uL (0.0-0.8); MONO % 8.8 % (2.0-8.0); NEUTROPHILS # 3.2 10^3/uL (1.5-8.5); NEUTROPHILS % 48.7 % (36.0-66.0); PLATELET COUNT, AUTOMATED 231 10^3/uL (150-450); RED BLOOD COUNT 5.06 10^6/uL (4.30-6.10); WHITE BLOOD COUNT 6.5 10^3/uL (4.0-10.0)
[2022-11-02 15:35] LABS: HEMOGLOBIN A1c 6.6 % (4.0-6.0)
[2022-11-02 15:48] LABS: CREATININE, URINE 124.1 MG/DL
[2022-11-02 15:49] LABS: MALB URINE SIEMENS < 3.0 MG/L; MAU/CREAT RATIO 2.4 MCG/MG (0.0-30.0)
[2022-11-02 15:58] LABS: ALBUMIN 3.9 G/DL (3.2-5.2); ALKALINE PHOSPHATASE 74 U/L (46-116); ALT/SGPT 19 U/L (7.0-40); AST/SGOT 20 U/L (<34); BILIRUBIN,TOTAL 0.4 MG/DL (0.3-1.2); BLOOD UREA NITROGEN 26 MG/DL (9-23); CALCIUM LEVEL 9.5 MG/DL (8.3-10.6); CARBON DIOXIDE LEVEL 28 MMOL/L (20-31); CHLORIDE LEVEL 104 MMOL/L (98-107); CHOLESTEROL LEVEL 286 MG/DL (<200); CHOLESTEROL RISK RATIO 7.83 (<5); GLOMERULAR FILTRATION RATE > 60.0 (>42); GLUCOSE, FASTING 97 MG/DL (74-106); HDL CHOLESTEROL 36.5 MG/DL (>40); NON-HDL-C 249.5 MG/DL; POTASSIUM SERUM 5.5 MMOL/L (3.5-5.1); SODIUM LEVEL 135 MMOL/L (136-145); TOTAL PROTEIN 6.3 G/DL (5.7-8.2); TRIGLYCERIDES LEVEL 1152 MG/DL (<150)
== END ==
LOC: M PLALAB 09:37
PROVIDERS: ATTEND Nurse Practitioner Family
DX: M25.561 Pain in right knee (principal); E11.9 Type 2 diabetes mellitus without complications; E78.2 Mixed hyperlipidemia

== ENCOUNTER → 2022-12-12 | Outpatient (CLI) | payer MEDICARE, OTHER ==
[~2022-12-12] MED LIST changes: -GABA-283 PO; +GABA-284 PO
[2022-12-12 13:35] LABS: ALBUMIN 3.8 G/DL (3.2-5.2); BILIRUBIN,TOTAL 0.4 MG/DL (0.3-1.2); CHOLESTEROL RISK RATIO 6.87 (<5); CREATININE FOR GFR 1.4 MG/DL (0.70-1.30); HDL CHOLESTEROL 38.1 MG/DL (>40); LDL CHOLESTEROL 166.3 MG/DL (<100); NON-HDL-C 223.9 MG/DL; POTASSIUM SERUM 5.4 MMOL/L (3.5-5.1); TOTAL PROTEIN 6.5 G/DL (5.7-8.2)
[2022-12-12 13:36] LABS: TOTAL 25(OH) VITAMIN D 37.8 NG/ML (20.0-100.0)
== END ==
LOC: M PLALAB 10:12
PROVIDERS: ATTEND Registered Nurse
DX: E55.9 Vitamin D deficiency, unspecified (principal)

== ENCOUNTER → 2023-01-29 | Outpatient (REF) | payer MEDICARE, OTHER ==
[~2023-01-29] MED LIST changes: -CEFD300C41 PO; +CEFD300C42 PO
[2023-01-29 21:40] LABS: APPEARANCE, URINE CLEAR (CLEAR); BACTERIA, URINE AUTO NEGATIVE (NEGATIVE); BILIRUBIN, URINE AUTO NEGATIVE (NEGATIVE); BLOOD, URINE BLOOD NEGATIVE (NEGATIVE); COLOR, URINE YELLOW (YELLOW); GLUCOSE, URINE (UA) AUTO NEGATIVE (NEGATIVE); KETONE, URINE AUTO NEGATIVE (NEGATIVE); LEUKOCYTE ESTERASE, URINE AUTO NEGATIVE (NEGATIVE); MUCUS, URINE SMALL (NEGATIVE); NITRITE, URINE AUTO NEGATIVE (NEGATIVE); PROTEIN, URINE AUTO NEGATIVE (NEGATIVE); RBC, URINE AUTO 1 /HPF (0-3); SPECIFIC GRAVITY URINE AUTO 1.019 (1.002-1.035); SQUAMOUS EPITHELIAL CELL UR AU 0 /HPF (0-6); WBC, URINE AUTO 0 /HPF (0-3)
== END ==
LOC: M LAB REF 21:09
PROVIDERS: ATTEND Physician Assistant Medical
DX: B34.9 Viral infection, unspecified (principal)

== ENCOUNTER → 2023-01-30 | Outpatient (CLI) | payer MEDICARE, OTHER ==
[~2023-01-30] MED LIST changes: +CEFD300C41 PO; -CEFD300C42 PO
== END ==
LOC: M PLALAB 13:35
PROVIDERS: ATTEND Physician Assistant Medical
DX: M79.10 Myalgia, unspecified site (principal)

== ENCOUNTER → 2023-03-15 | Outpatient (CLI) | payer MEDICARE, OTHER ==
[~2023-03-15] MED LIST changes: -CEFD300C41 PO; +CEFD300C42 PO
== END ==
LOC: M PLALAB 11:16
PROVIDERS: ATTEND Urology
DX: R97.20 Elevated prostate specific antigen [PSA] (principal); I10 Essential (primary) hypertension

== ENCOUNTER → 2023-05-08 | Outpatient (CLI) | payer MEDICARE, OTHER ==
[~2023-05-08] MED LIST changes: +CEFD1CAP9 PO; -CEFD300C42 PO
[2023-05-08 13:34] LABS: THYROID STIMULATING HORMONE 1.809 uIU/ML (0.55-4.78); THYROXINE (T4) 8.7 UG/DL (4.5-10.9)
[2023-05-08 13:35] LABS: VITAMIN B12 LEVEL 644 PG/ML (211-911)
[2023-05-08 13:39] LABS: FOLATE > 24.0 NG/ML (>5.4)
[2023-05-08 13:41] LABS: FREE THYROXINE INDEX 2.6 % (1.4-3.8); T UPTAKE 29.5 % (22.5-37.0)
== END ==
LOC: M PLALAB 09:58
PROVIDERS: ATTEND Psychiatry & Neurology Neurology
DX: E07.9 Disorder of thyroid, unspecified (principal); E53.8 Deficiency of other specified B group vitamins; F04 Amnestic disorder due to known physiological condition

== ENCOUNTER → 2023-06-10 | Outpatient (CLI) | payer MEDICARE, OTHER ==
[2023-06-10 11:13] LABS: CORTISOL AM 24.3 UG/DL (4.3-22.4)
[2023-06-10 11:15] LABS: CREATININE FOR GFR 1.41 MG/DL (0.70-1.30); GLOMERULAR FILTRATION RATE 52.5 (>42)
[2023-06-10 11:16] LABS: FOLLICLE STIMULATING HORMONE 8.3 mIU/ML (1.4-18.1)
[2023-06-10 11:17] LABS: LUTEINIZING HORMONE 4.5 mIU/ML (3.1-34.6); PROLACTIN 6.96 NG/ML (2.1-17.7)
[2023-06-12 15:08] LABS: ADRENOCORTICOTROPHIC HORMONE 94.5 pg/mL (7.2-63.3)
== END ==
LOC: M PLALAB 09:33 → M LAB 09:33
PROVIDERS: ATTEND Internal Medicine Endocrinology, Diabetes & Metabolism
DX: D49.7 Neoplasm of unspecified behavior of endocrine glands and other parts of nervous system (principal)

== ENCOUNTER → 2023-09-13 | Outpatient (CLI) | payer MEDICARE, OTHER ==
[2023-09-13 14:06] LABS: BASO # 0.1 10^3/uL (0.0-0.2); EOS # 0.4 10^3/uL (0.0-0.5); EOS % 7.4 % (0.0-3.0); HEMATOCRIT 44.6 % (42.0-52.0); HEMOGLOBIN 14.6 g/dl (13.5-17.5); LYMPH % 33.2 % (24.0-44.0); MEAN CORPUSCULAR HEMOGLOBIN 29.3 pg (27.0-33.0); MEAN CORPUSCULAR HGB CONC 32.7 g/dl (32.0-36.5); MEAN CORPUSCULAR VOLUME 89.6 fl (80.0-96.0); MONO # 0.6 10^3/uL (0.0-0.8); MONO % 9.4 % (2.0-8.0); NEUTROPHILS # 2.9 10^3/uL (1.5-8.5); NEUTROPHILS % 48.8 % (36.0-66.0); PLATELET COUNT, AUTOMATED 217 10^3/uL (150-450); RED BLOOD COUNT 4.98 10^6/uL (4.30-6.10); WHITE BLOOD COUNT 5.9 10^3/uL (4.0-10.0)
[2023-09-13 14:10] LABS: ALBUMIN 3.7 G/DL (3.2-5.2); ALKALINE PHOSPHATASE 69 U/L (46-116); ALT/SGPT 24 U/L (7.0-40); AST/SGOT 19 U/L (<34); BILIRUBIN,TOTAL 0.5 MG/DL (0.3-1.2); BLOOD UREA NITROGEN 29 MG/DL (9-23); CALCIUM LEVEL 9.6 MG/DL (8.3-10.6); CARBON DIOXIDE LEVEL 26 MMOL/L (20-31); CHLORIDE LEVEL 104 MMOL/L (98-107); CHOLESTEROL LEVEL 283 MG/DL (<200); CREATININE FOR GFR 1.31 MG/DL (0.70-1.30); GLOMERULAR FILTRATION RATE 57.1 (>42); GLUCOSE, FASTING 100 MG/DL (74-106); HDL CHOLESTEROL 34.9 MG/DL (>40); NON-HDL-C 248.1 MG/DL; POTASSIUM SERUM 4.8 MMOL/L (3.5-5.1); SODIUM LEVEL 136 MMOL/L (136-145); TOTAL PROTEIN 6.3 G/DL (5.7-8.2); TRIGLYCERIDES LEVEL 502 MG/DL (<150)
[2023-09-13 14:11] LABS: TOTAL 25(OH) VITAMIN D 38.2 NG/ML (20.0-100.0)
[2023-09-13 14:26] LABS: HEMOGLOBIN A1c 5.9 % (4.0-6.0)
== END ==
LOC: M PLALAB 09:12
PROVIDERS: ATTEND Registered Nurse
DX: E11.9 Type 2 diabetes mellitus without complications (principal)

== ENCOUNTER → 2023-10-23 | Outpatient (CLI) | payer MEDICARE, OTHER | LOC: M PLALAB 13:01 | PROVIDERS: ATTEND Urology | DX: R97.20 Elevated prostate specific antigen [PSA] (principal) ==

== ENCOUNTER → 2023-11-26 | Outpatient (CLI) | payer MEDICARE, OTHER | LOC: M PLAIMG 10:00 | PROVIDERS: ATTEND Otolaryngology | DX: E23.6 Other disorders of pituitary gland (principal) ==

== ENCOUNTER → 2023-12-04 | Outpatient (CLI) | payer MEDICARE, OTHER ==
[~2023-12-04] MED LIST changes: -ACIP1TAB PO; +RABE20TA88 PO
[2023-12-04 14:41] LABS: BILIRUBIN,TOTAL 0.5 MG/DL (0.3-1.2); CALCIUM LEVEL 9.8 MG/DL (8.3-10.6); CHOLESTEROL RISK RATIO 6.93 (<5); CREATININE FOR GFR 1.51 MG/DL (0.70-1.30); GLOMERULAR FILTRATION RATE 48.5 (>42); HDL CHOLESTEROL 41.1 MG/DL (>40); LDL CHOLESTEROL 194.3 MG/DL (<100); NON-HDL-C 243.9 MG/DL; POTASSIUM SERUM 4.9 MMOL/L (3.5-5.1); TOTAL PROTEIN 6.7 G/DL (5.7-8.2)
== END ==
LOC: M PLALAB 09:42
PROVIDERS: ATTEND Registered Nurse
DX: E78.2 Mixed hyperlipidemia (principal)

== ENCOUNTER → 2024-01-29 | Outpatient (REF) | payer MEDICARE, OTHER ==
[~2024-01-29] MED LIST changes: +GABA-1490 PO; -GABA600T4 PO
== END ==
LOC: M LAB REF 17:17
PROVIDERS: ATTEND Nurse Practitioner Family
DX: Z01.818 Encounter for other preprocedural examination (principal); D35.2 Benign neoplasm of pituitary gland; K22.70 Barrett's esophagus without dysplasia

== ENCOUNTER → 2024-02-01 | Outpatient (REF) | payer MEDICARE, OTHER | LOC: M LAB REF 16:53 | PROVIDERS: ATTEND Physician Assistant Medical | DX: R50.9 Fever, unspecified (principal) ==

== ENCOUNTER → 2024-02-04 | Outpatient (REF) | payer MEDICARE, OTHER ==
[2024-02-04 13:47] LABS: APPEARANCE, URINE CLEAR (CLEAR); BACTERIA, URINE AUTO NEGATIVE (NEGATIVE); BILIRUBIN, URINE AUTO NEGATIVE (NEGATIVE); BLOOD, URINE BLOOD NEGATIVE (NEGATIVE); COLOR, URINE YELLOW (YELLOW); GLUCOSE, URINE (UA) AUTO NEGATIVE (NEGATIVE); KETONE, URINE AUTO NEGATIVE (NEGATIVE); LEUKOCYTE ESTERASE, URINE AUTO NEGATIVE (NEGATIVE); MUCUS, URINE SMALL (NEGATIVE); NITRITE, URINE AUTO NEGATIVE (NEGATIVE); PROTEIN, URINE AUTO NEGATIVE (NEGATIVE); RBC, URINE AUTO 0 /HPF (0-3); SPECIFIC GRAVITY URINE AUTO 1.017 (1.002-1.035); SQUAMOUS EPITHELIAL CELL UR AU 0 /HPF (0-6); WBC, URINE AUTO 3 /HPF (0-3)
== END ==
LOC: M SMT 12:56
PROVIDERS: ATTEND Urology
DX: R39.15 Urgency of urination (principal)

== ENCOUNTER → 2024-03-25 | Outpatient (CLI) | payer MEDICARE, OTHER ==
[2024-03-25 14:00] LABS: BASO # 0.1 10^3/uL (0.0-0.2); EOS # 0.4 10^3/uL (0.0-0.5); EOS % 7.4 % (0.0-3.0); HEMATOCRIT 43.1 % (42.0-52.0); HEMOGLOBIN 13.9 g/dl (13.5-17.5); LYMPH % 33.8 % (24.0-44.0); MEAN CORPUSCULAR HEMOGLOBIN 29.1 pg (27.0-33.0); MEAN CORPUSCULAR HGB CONC 32.3 g/dl (32.0-36.5); MEAN CORPUSCULAR VOLUME 90.4 fl (80.0-96.0); MONO # 0.4 10^3/uL (0.0-0.8); MONO % 7.4 % (2.0-8.0); NEUTROPHILS % 50.1 % (36.0-66.0); PLATELET COUNT, AUTOMATED 252 10^3/uL (150-450); RED BLOOD COUNT 4.77 10^6/uL (4.30-6.10); WHITE BLOOD COUNT 5.9 10^3/uL (4.0-10.0)
[2024-03-25 14:19] LABS: HEMOGLOBIN A1c 5.7 % (4.0-6.0)
[2024-03-25 14:43] LABS: ALBUMIN 3.8 G/DL (3.2-5.2); BILIRUBIN,TOTAL 0.6 MG/DL (0.3-1.2); CALCIUM LEVEL 10.2 MG/DL (8.3-10.6); CHOLESTEROL RISK RATIO 5.36 (<5); CREATININE FOR GFR 1.37 MG/DL (0.70-1.30); GLOMERULAR FILTRATION RATE 54.1 (>42); HDL CHOLESTEROL 39.9 MG/DL (>40); LDL CHOLESTEROL 139.9 MG/DL (<100); NON-HDL-C 174.1 MG/DL; POTASSIUM SERUM 5.3 MMOL/L (3.5-5.1); TOTAL PROTEIN 6.6 G/DL (5.7-8.2)
== END ==
LOC: M PLALAB 09:48
PROVIDERS: ATTEND Registered Nurse
DX: E78.2 Mixed hyperlipidemia (principal); E11.9 Type 2 diabetes mellitus without complications

== ENCOUNTER → 2024-04-20 | Outpatient (CLI) | payer MEDICARE, OTHER ==
[2024-04-20 15:41] LABS: ALBUMIN 3.6 G/DL (3.2-5.2); BILIRUBIN,TOTAL 0.5 MG/DL (0.3-1.2); CALCIUM LEVEL 10.1 MG/DL (8.3-10.6); CREATININE FOR GFR 1.32 MG/DL (0.70-1.30); GLOMERULAR FILTRATION RATE 56.4 (>42); POTASSIUM SERUM 4.6 MMOL/L (3.5-5.1); TOTAL PROTEIN 6.7 G/DL (5.7-8.2)
[2024-04-20 15:45] LABS: BASO # 0.1 10^3/uL (0.0-0.2); BASO % 0.7 % (0.0-1.0); EOS # 0.4 10^3/uL (0.0-0.5); EOS % 5.5 % (0.0-3.0); HEMOGLOBIN 14.4 g/dl (13.5-17.5); LYMPH # 1.9 10^3/uL (1.5-5.0); MEAN CORPUSCULAR HEMOGLOBIN 29.9 pg (27.0-33.0); MEAN CORPUSCULAR HGB CONC 32.7 g/dl (32.0-36.5); MEAN CORPUSCULAR VOLUME 91.3 fl (80.0-96.0); MONO # 0.4 10^3/uL (0.0-0.8); MONO % 6.3 % (2.0-8.0); NEUTROPHILS # 3.9 10^3/uL (1.5-8.5); NEUTROPHILS % 58.2 % (36.0-66.0); PLATELET COUNT, AUTOMATED 263 10^3/uL (150-450); RED BLOOD COUNT 4.82 10^6/uL (4.30-6.10); WHITE BLOOD COUNT 6.7 10^3/uL (4.0-10.0)
[2024-04-20 15:50] LABS: INR 0.93; PROTHROMBIN TIME 12.8 SECONDS (12.5-14.5)
[2024-04-20 16:40] LABS: APPEARANCE, URINE CLEAR (CLEAR); BACTERIA, URINE AUTO NEGATIVE (NEGATIVE); BILIRUBIN, URINE AUTO NEGATIVE (NEGATIVE); BLOOD, URINE BLOOD NEGATIVE (NEGATIVE); COLOR, URINE YELLOW (YELLOW); GLUCOSE, URINE (UA) AUTO NEGATIVE (NEGATIVE); KETONE, URINE AUTO NEGATIVE (NEGATIVE); LEUKOCYTE ESTERASE, URINE AUTO 1+ (NEGATIVE); MUCUS, URINE SMALL (NEGATIVE); NITRITE, URINE AUTO NEGATIVE (NEGATIVE); PROTEIN, URINE AUTO NEGATIVE (NEGATIVE); RBC, URINE AUTO 1 /HPF (0-3); SPECIFIC GRAVITY URINE AUTO 1.015 (1.002-1.035); SQUAMOUS EPITHELIAL CELL UR AU 0 /HPF (0-6); UROBILINOGEN, URINE AUTO 0.2 mg/dL (0.0-2.0); WBC, URINE AUTO 2 /HPF (0-3)
== END ==
LOC: M PLALAB 13:21
PROVIDERS: ATTEND Registered Nurse
DX: Z00.00 Encounter for general adult medical examination without abnormal findings (principal); E78.2 Mixed hyperlipidemia

== ENCOUNTER → 2024-05-29 | Outpatient (CLI) | payer MEDICARE, OTHER ==
[2024-06-01 16:13] LABS: PSA FREE 1.9 ng/mL; PSA TOTAL 12.2 ng/mL (< OR = 4.0)
== END ==
LOC: M PLALAB 15:53
PROVIDERS: ATTEND Urology
DX: R97.20 Elevated prostate specific antigen [PSA] (principal)

== ENCOUNTER → 2024-06-16 | Outpatient (CLI) | payer MEDICARE, OTHER ==
[2024-06-16 13:26] LABS: BLOOD UREA NITROGEN 18 MG/DL (9-23); CALCIUM LEVEL 10.2 MG/DL (8.3-10.6); CARBON DIOXIDE LEVEL 27 MMOL/L (20-31); CHLORIDE LEVEL 105 MMOL/L (98-107); CREATININE FOR GFR 1.25 MG/DL (0.70-1.30); GLOMERULAR FILTRATION RATE > 60.0 (>42); GLUCOSE, FASTING 114 MG/DL (74-106); POTASSIUM SERUM 4.8 MMOL/L (3.5-5.1); SODIUM LEVEL 140 MMOL/L (136-145)
[2024-06-16 13:27] LABS: OSMOLALITY SERUM 302 MOSM/KG (280-301)
[2024-06-16 13:28] LABS: THYROID STIMULATING HORMONE 1.425 uIU/ML (0.55-4.78)
[2024-06-16 13:29] LABS: FREE T4 1.27 NG/DL (0.89-1.76); TESTOSTERONE 464 NG/DL (241-827)
== END ==
LOC: M PLALAB 10:19
PROVIDERS: ATTEND Student in an Organized Health Care Education/Training Program
DX: D32.9 Benign neoplasm of meninges, unspecified (principal); Z98.890 Other specified postprocedural states; E07.9 Disorder of thyroid, unspecified

== ENCOUNTER → 2024-06-24 | Outpatient (CLI) | payer MEDICARE, OTHER ==
[~2024-06-24] MED LIST changes: +GADOXETATE DISODIUM 2.5MMOL/10ML VIAL (EOVIST) As Ordered ONE; +PROHANCE 279.3MG/ML 15ML VIAL As Ordered ONE; +PROHANCE 279.3MG/ML 5ML VIAL As Ordered ONE
== END ==
LOC: M RAD 12:28
PROVIDERS: ATTEND Urology
DX: R97.20 Elevated prostate specific antigen [PSA] (principal)
CPT/HCPCS: 72197; A9576; A9581

== ENCOUNTER → 2024-08-04 | Outpatient (REF) | payer MEDICARE, OTHER ==
[~2024-08-04] MED LIST changes: -GADOXETATE DISODIUM 2.5MMOL/10ML VIAL (EOVIST) As Ordered ONE; -PROHANCE 279.3MG/ML 15ML VIAL As Ordered ONE; -PROHANCE 279.3MG/ML 5ML VIAL As Ordered ONE
== END ==
LOC: M SMT 13:12
PROVIDERS: ATTEND Urology
DX: R97.20 Elevated prostate specific antigen [PSA] (principal); C61 Malignant neoplasm of prostate

== ENCOUNTER → 2024-09-03 | Outpatient (CLI) | payer MEDICARE, OTHER ==
[~2024-09-03] MED LIST changes: -FLOM0.4C39 PO; +TAMS-18 PO
[2024-09-03 11:04] LABS: HEMATOCRIT 43.2 % (42.0-52.0); MEAN CORPUSCULAR HEMOGLOBIN 28.6 pg (27.0-33.0); MEAN CORPUSCULAR HGB CONC 32.4 g/dl (32.0-36.5); MEAN CORPUSCULAR VOLUME 88.3 fl (80.0-96.0); PLATELET COUNT, AUTOMATED 265 10^3/uL (150-450); RED BLOOD COUNT 4.89 10^6/uL (4.30-6.10); WHITE BLOOD COUNT 6.5 10^3/uL (4.0-10.0)
[2024-09-03 11:22] LABS: INR 0.83; PARTIAL THROMBOPLASTIN TIME 27.2 SECONDS (24.8-34.2); PROTHROMBIN TIME 11.7 SECONDS (12.5-14.5)
[2024-09-03 11:37] LABS: CALCIUM LEVEL 10.3 MG/DL (8.3-10.6); CREATININE FOR GFR 1.43 MG/DL (0.70-1.30); GLOMERULAR FILTRATION RATE 51.4 (>42); POTASSIUM SERUM 5.2 MMOL/L (3.5-5.1)
== END ==
LOC: M RAD 09:48
PROVIDERS: ATTEND Urology
DX: Z01.818 Encounter for other preprocedural examination (principal); Z79.01 Long term (current) use of anticoagulants

== ENCOUNTER → 2024-09-14 | Outpatient (CLI) | payer MEDICARE, OTHER ==
[~2024-09-14] MED LIST changes: -ALPH600C PO; +ALPH600C2 PO; +ATOR1TAB19 PO; +DONE10TA90 PO; +FENO54TA2 PO; +FLUO60TA PO; +LISI5TAB11 PO; +MULTTAB61 PO; +RABE1TAB5 PO; +TAMS1CAP17 PO
== END ==
LOC: M LAB 11:10
PROVIDERS: ATTEND Urology
DX: C61 Malignant neoplasm of prostate (principal); N39.0 Urinary tract infection, site not specified

== ENCOUNTER 2024-11-30 07:02 | Day surgery (SDC) | payer MEDICARE, OTHER ==
[~2024-11-30] VITALS: Ht 170.2 cm; Wt 79.0 kg
[~2024-11-30 07:02] MED LIST changes: -ACE65ERTAB PO; +ACET-1593 PO; +ARIC1TAB PO; +CEPH500C PO; +COLA100C5 PO; +PERCOCET PO
[2024-11-30] MEDS ORDERED: MIDAZOLAM INJ 2 MG/2 ML VIAL As Ordered ONE (07:39)
[2024-11-30 08:08] VITALS: TEMP 97.7
[2024-11-30 08:26] VITALS: BP 116/63; O2SAT 100
== END 2024-11-30 08:27 | disposition home or self-care (01) ==
LOC: M OPP 07:02
PROVIDERS: ATTEND Internal Medicine Gastroenterology
DX: K64.0 First degree hemorrhoids (principal); Z86.0100 Personal history of colon polyps, unspecified; K22.70 Barrett's esophagus without dysplasia; K44.9 Diaphragmatic hernia without obstruction or gangrene; R12 Heartburn; G47.30 Sleep apnea, unspecified; Z88.1 Allergy status to other antibiotic agents; Z88.8 Allergy status to other drugs, medicaments and biological substances; Z91.048 Other nonmedicinal substance allergy status; Z79.84 Long term (current) use of oral hypoglycemic drugs; Z79.899 Other long term (current) drug therapy
CPT/HCPCS: 43239; 45378; 88305; J2250

== ENCOUNTER → 2024-12-04 | Outpatient (CLI) | payer MEDICARE, OTHER ==
[~2024-12-04] MED LIST changes: +PROHANCE 279.3MG/ML 15ML VIAL As Ordered ONE
== END ==
LOC: M RAD 10:28
PROVIDERS: ATTEND Neurological Surgery
DX: D49.7 Neoplasm of unspecified behavior of endocrine glands and other parts of nervous system (principal)
CPT/HCPCS: 70553; A9576

== ENCOUNTER → 2025-01-28 | Outpatient (CLI) | payer MEDICARE, OTHER ==
[~2025-01-28] MED LIST changes: -PROHANCE 279.3MG/ML 15ML VIAL As Ordered ONE
== END ==
LOC: M PLALAB 11:20
PROVIDERS: ATTEND Urology
DX: C61 Malignant neoplasm of prostate (principal)

== ENCOUNTER → 2025-02-15 | Outpatient (CLI) | payer MEDICARE, OTHER | LOC: M SLEEP HO 11:31 | PROVIDERS: ATTEND Physician Assistant | DX: G47.33 Obstructive sleep apnea (adult) (pediatric) (principal) ==

== ENCOUNTER → 2025-03-30 | Outpatient (CLI) | payer MEDICARE, OTHER ==
[~2025-03-30] MED LIST changes: +ACET-1387 PO; -ACET-1593 PO; +PROHANCE 279.3MG/ML 5ML VIAL As Ordered ONE; +[UNRECOGNIZED DRUG - CODE] PO; -[UNRECOGNIZED DRUG - CODE] PO
== END ==
LOC: M RAD 10:50
PROVIDERS: ATTEND Neurological Surgery
DX: D49.7 Neoplasm of unspecified behavior of endocrine glands and other parts of nervous system (principal); Z98.890 Other specified postprocedural states
CPT/HCPCS: 70553; A9579

== ENCOUNTER → 2025-04-12 | Outpatient (CLI) | payer MEDICARE, OTHER ==
[~2025-04-12] MED LIST changes: -PROHANCE 279.3MG/ML 5ML VIAL As Ordered ONE
[2025-04-12 13:58] LABS: BASO # 0.1 10^3/uL (0.0-0.2); BASO % 1.0 % (0.0-1.0); EOS # 0.4 10^3/uL (0.0-0.5); EOS % 7.1 % (0.0-3.0); LYMPH # 1.9 10^3/uL (1.5-5.0); LYMPH % 32.5 % (24.0-44.0); MONO # 0.4 10^3/uL (0.0-0.8); MONO % 6.7 % (2.0-8.0); NEUTROPHILS # 3.0 10^3/uL (1.5-8.5); NEUTROPHILS % 52.5 % (36.0-66.0); PLATELET COUNT, AUTOMATED 276 10^3/uL (150-450)
[2025-04-12 14:02] LABS: ALT/SGPT 18 U/L (7.0-40); AST/SGOT 17 U/L (<34); CALCIUM LEVEL 9.7 MG/DL (8.3-10.6); CARBON DIOXIDE LEVEL 28 MMOL/L (20-31); CHLORIDE LEVEL 102 MMOL/L (98-107); CHOLESTEROL LEVEL 197 MG/DL (<200); CHOLESTEROL RISK RATIO 4.30 (<5); CREATININE FOR GFR 1.23 MG/DL (0.70-1.30); GLOMERULAR FILTRATION RATE 61.2 (>42); IRON (FE) 78 UG/DL (65-175); LDL CHOLESTEROL 119.2 MG/DL (<100); NON-HDL-C 151.2 MG/DL; PERCENT SATURATION 22.1 % (19.7-50.0); POTASSIUM SERUM 4.9 MMOL/L (3.5-5.1); SODIUM LEVEL 138 MMOL/L (136-145); TRIGLYCERIDES LEVEL 160 MG/DL (<150)
[2025-04-12 14:03] LABS: FREE T4 1.12 NG/DL (0.89-1.76); THYROID PEROXIDASE ANTIBODY < 28.0 U/ML (<60.0); VITAMIN B12 LEVEL 589 PG/ML (211-911)
[2025-04-12 14:04] LABS: TOTAL 25(OH) VITAMIN D 53.3 NG/ML (20.0-100.0)
[2025-04-12 14:23] LABS: CREATININE, URINE 89.6 MG/DL; MALB URINE SIEMENS < 3.0 MG/L
[2025-04-12 14:32] LABS: ESTIMATED AVERAGE GLUCOSE 117.0 MG/DL (60-110)
== END ==
LOC: M PLALAB 10:06
PROVIDERS: ATTEND Registered Nurse
DX: E11.9 Type 2 diabetes mellitus without complications (principal); K22.70 Barrett's esophagus without dysplasia; G31.84 Mild cognitive impairment of uncertain or unknown etiology; Z79.899 Other long term (current) drug therapy